=== PATIENT | female | born 1975 | race Two or more races ===

== ENCOUNTER 2017-04-18 07:17 | Emergency (ER) | payer SELFPAY ==
[~2017-04-18] VITALS: Ht 160 cm; Wt 65.8 kg
[~2017-04-18 07:17] MED LIST: ACETAMINOPHEN-1 EAC1 ORAL; ALBUTEROL2.5 MG/3 M INH; BACTRIM DS TAB1 EAC1 ORAL; IBUPROFEN600 MG ORAL; NORCO 5-325 TA1 EACH ORAL; SYNTHROID25 MCG ORAL; TENORMIN25 MG ORAL; UNOBMED
[2017-04-18 07:20] VITALS: BP 122/86
--- NOTE | 2017-04-18 08:28 | Emergency Room Report ---
History of Present Illness General Chief Complaint: Overdose Source: Patient, EMS Present Illness HPI Patient was received by paramedics at a methadone clinic \ Patient had been reported to be overdose Was unresponsive And paramedics report patient became responsive after she was given Narcan Patient here continues to be somewhat sluggish to respond She states that she wants to go home Denies any chest pain or shortness of breath denies any back or flank pain History of present illness at this time is somewhat limited as the patient is unable to provide history of how long she has been going to the methadone clinic or why she is on methadone Allergies: Coded Allergies: PENICILLINS (Verified Allergy, Unknown, 05/05/15) UNABLE TO ASSESS (Unverified , 04/18/17) Patient History Limited by: medical condition Past Medical History: see triage record Pertinent Family History: unable to obtain Last Menstrual Period: Unknown Reviewed Nursing Documentation: PMH: Agreed, PSxH: Agreed Nursing Documentation-PMH Hx Cardiac Problems: Yes Hx Hypertension: Yes Hx Cancer: Yes - thyroid cancer Hx Gastrointestinal Problems: No History Of Psychiatric Problem: Yes - Substance abuse Hx Neurological Problems: No Review of Systems All Other Systems: limited - Other than the ones mentioned in the history of present illness all others are reviewed however they do stay limited due to the patient's mental status Physical Exam Vital Signs Date Time Temp Pulse Resp B/P (MAP) Pulse Ox O2 Delivery O2 Flow Rate FiO2 04/18/17 07:10 98.8 98 16 121/79 98 Room Air Sp02 EP Interpretation: reviewed, normal General Appearance: no apparent distress - Patient appears mildly disheveled, otherwise in no acute respiratory distress Head: normocephalic, atraumatic Eyes: bilateral eye PERRL, bilateral eye EOMI ENT: hearing grossly normal, normal pharynx, TMs + canals normal, uvula midline Neck: full range of motion, supple, no meningismus, no bony tend Respiratory: lungs clear, normal breath sounds, no rhonchi, no respiratory distress, no retraction, no accessory muscle use Cardiovascular #1: normal peripheral pulses, regular rate, rhythm, no edema, no gallop, no JVD, no murmur Gastrointestinal: normal bowel sounds, non tender, soft, no mass, no organomegaly, non-distended, no guarding, no hernia, no pulsatile mass, no rebound Musculoskeletal: normal inspection Neurologic: responsive - Patient was initially slow to respond somewhat sluggish however throughout her stay has become more oriented and appropriate,, nursing admin III-XII nml as tested, motor strength/tone normal, sensory intact Psychiatric: mood/affect normal Skin: normal color, no rash, warm/dry, palpation normal Lymphatic: normal inspection, no adenopathy Medical Decision Making Diagnostic Impression: Primary Impression: Drug overdose ER Course Upon initial arrival patient is responsive to stimuli Maintaining appropriate respiratory efforts and saturation Patient was allowed to rest Multiple differentials including but not limited to suicide attempt, electrolyte pathology, aspiration, considered After further observation patient is awake alert Adamantly denies any suicidal thought, patient reports that she was given her usual methadone dose and is not sure why that the effect on her that it nevertheless patient maintaining appropriate airway At this time requested to go home in stable to do so Rhythm Strip Diag. Results EP Interpretation: yes Rate: 77 Rhythm: NSR, no PVC's, no ectopy Chest X-Ray Diagnostic Results Chest X-Ray Diagnostic Results : Chest X-Ray Ordered: Yes # of Views/Limited/Complete: 1 View Indication: Shortness of Breath EP Interpretation: Yes Interpretation: no consolidation, no effusion, no pneumothorax Impression: No acute disease Electronically Signed by: Josh Osborn DO Last Vital Signs Date Time Temp Pulse Resp B/P (MAP) Pulse Ox O2 Delivery O2 Flow Rate FiO2 04/18/17 07:20 98 16 Room Air 04/18/17 07:20 98.8 122/86 100 Status: improved Disposition: HOME, SELF-CARE Condition: Improved Referrals: NOT CHOSEN IPA/MD,REFERRING (PCP) Additional Instructions: Patient is provided with the discharge instructions notified to follow up with primary doctor in the next 2-3 days otherwise return to the er with any worsening symptoms. Please note that this report is being documented using [employer] technology. This can lead to erroneous entry secondary to incorrect interpretation by the dictating instrument. JOSH OSBORN D.O. Apr 18, 2017 08:28
[2017-04-18 08:57] VITALS: BP 128/88
--- NOTE | 2017-04-18 09:28 | Diagnostic Imaging Report ---
Indication: Chest pain Technique: XRAY Chest 1v Comparison: 05/05/2015 Findings: Patient mildly rotated. Heart size and mediastinal contours are within normal limits given technique. There is no focal consolidation, pneumothorax or pleural effusion. Osseous structures demonstrate no acute abnormality. Impression: No radiographic evidence of acute cardiopulmonary disease.
[2017-04-18 10:03] VITALS: BP 127/83
[2017-04-18 11:31] VITALS: BP 127/83
--- NOTE | 2017-04-19 19:17 | Cardiology Report ---
APPROVED REPORT EKG Measurement Heart [id number] Sinus tachycardia Otherwise normal ECG
== END 2017-04-18 11:31 | disposition home or self-care (01) ==
LOC: EDBD 07:17 → EMR 07:40
DX: T40.3X1A Poisoning by methadone, accidental (unintentional), initial encounter (principal); Y92.9 Unspecified place or not applicable; Z88.0 Allergy status to penicillin; I10 Essential (primary) hypertension; Z85.850 Personal history of malignant neoplasm of thyroid
CPT/HCPCS: 71010; 93005; 99283

== ENCOUNTER 2017-10-05 21:25 | Inpatient (IN) | payer SELFPAY ==
[~2017-10-05] VITALS: Ht 157.5 cm; Wt 62.6 kg
[2017-10-05 21:35] VITALS: BP 97/64
[2017-10-05 22:37] LABS: ANION GAP 9 mmol/L (5-15); BLOOD UREA NITROGEN 14 mg/dL (7-18); CARBON DIOXIDE 26 MMOL/L (21-32); CHLORIDE 102 MMOL/L (98-107); CREATININE 0.9 MG/DL (0.55-1.30); POTASSIUM 3.8 MMOL/L (3.5-5.1); SODIUM 137 MMOL/L (136-145)
[2017-10-05 22:52] VITALS: BP 110/64
[2017-10-05 22:52] LABS: ALANINE AMINOTRANSFERASE 16 U/L (12-78); ALBUMIN 3.4 G/DL (3.4-5.0); ALKALINE PHOSPHATASE 44 U/L (46-116); ASPARTATE AMINO TRANSFERASE 13 U/L (15-37); BILIRUBIN,TOTAL 0.1 MG/DL (0.2-1.0); CKMB 0.6 NG/ML (0.0-3.6); CREATINE KINASE 40 U/L (26-308)
[2017-10-05 22:58] LABS: BASOPHILS % (AUTO) 0.8 % (0.0-2.0); EOSINOPHILS % (AUTO) 2.4 % (0.0-3.0); HEMATOCRIT 36.2 % (37.0-47.0); HEMOGLOBIN 12.2 G/DL (12.0-16.0); LYMPHOCYTES % (AUTO) 40.1 % (20.0-45.0); MEAN CORPUSCULAR VOLUME 94 FL (80-99); MONOCYTES % (AUTO) 7.6 % (1.0-10.0); NEUTROPHILS % (AUTO) 49.1 % (45.0-75.0); PLATELET COUNT 361 K/UL (150-450); RED BLOOD COUNT 3.84 M/UL (4.20-5.40); RED CELL DISTRIBUTION WIDTH 12.9 % (11.6-14.8); WHITE BLOOD COUNT 10.5 K/UL (4.8-10.8)
[2017-10-05] MEDS ORDERED: Morphine Sulfate 4mg/ml Inj IVP ONE (23:30)
[2017-10-05] MEDS ORDERED: NORCO 10-325 T1 EACH ORAL (23:58)
[2017-10-05] MEDS ORDERED: ATIVAN2 MG ORAL (23:58)
[2017-10-06 00:16] VITALS: BP 111/65
[2017-10-06 01:00] VITALS: BP 129/77
--- NOTE | 2017-10-06 02:06 | Emergency Room Report ---
History of Present Illness General Chief Complaint: Chest Pain Source: Patient Present Illness HPI 42-year-old female presents ED for evaluation. Complaining of chest pain which started around 5 PM today. Sudden onset. Sharp, left-sided, 7 out of 10, nonradiating. States she took nitroglycerin prescribed to her which did not help. Denies shortness of breath. Also complaining of vaginal bleeding for the last 2 months. States she feels weak. Denies recent drug use. No other aggravating relieving factors. Denies any other associated symptoms Allergies: Coded Allergies: PENICILLINS (Verified Allergy, Unknown, 05/05/15) UNABLE TO ASSESS (Unverified , 04/18/17) Patient History Past Medical History: [place] Past Surgical History: none Pertinent Family History: none Social History: Reports: drug use; Denies: smoking, alcohol use Now: No Immunizations: UTD Reviewed Nursing Documentation: PMH: Agreed; PSxH: Agreed Nursing Documentation-PMH Hx Cardiac Problems: Yes - HEART ATTACK Hx Cancer: Yes - thyroid cancer Hx Gastrointestinal Problems: No Hx Neurological Problems: No Review of Systems All Other Systems: negative except mentioned in HPI Physical Exam Vital Signs Date Time Temp Pulse Resp B/P (MAP) Pulse Ox O2 Delivery O2 Flow Rate FiO2 10/05/17 21:35 98.6 83 14 97/64 99 Room Air 98.6 10/05/17 21:35 2.0 Sp02 EP Interpretation: reviewed, normal General Appearance: no apparent distress, alert, GCS 15, non-toxic Head: normocephalic, atraumatic Eyes: bilateral eye normal inspection, bilateral eye PERRL ENT: hearing grossly normal, normal pharynx, no angioedema, normal voice Neck: full range of motion, supple/symm/no masses Respiratory: chest non-tender, lungs clear, normal breath sounds, speaking full sentences Cardiovascular #1: regular rate, rhythm, no edema Cardiovascular #2: 2+ carotid (R), 2+ carotid (L), 2+ radial (R), 2+ radial (L) , 2+ dorsalis pedis (R), 2+ dorsalis pedis (L) Gastrointestinal: normal bowel sounds, non tender, soft, non-distended, no guarding, no rebound Rectal: deferred Genitourinary: normal inspection, no CVA tenderness Musculoskeletal: back normal, gait/station normal, normal range of motion, non- tender Neurologic: alert, oriented x3, responsive, motor strength/tone normal, sensory intact, speech normal Psychiatric: judgement/insight normal, memory normal, mood/affect normal, no suicidal/homicidal ideation Reflexes: 3+ bicep (R), 3+ bicep (L), 3+ tricep (R), 3+ tricep (L), 3+ knee (R) , 3+ knee (L) Skin: normal color, no rash, warm/dry, well hydrated Lymphatic: no adenopathy Medical Decision Making Diagnostic Impression: Primary Impression: Vaginal bleeding Additional Impression: ACS (acute coronary syndrome) ER Course Hospital Course 42-year-old female presents ED complaining of chest pain, vaginal bleeding. no relief with nitro Differential diagnoses include: KS/unstable angina, contusion, muscle strain, PTX, rib fracture Clinical course Patient placed on stretcher. on satellite project site monitor. After initial history and physical I ordered labs, EKG, chest x-ray, morphine labs reviewed- no leukocytosis, hb/hct stable, electrolytes ok, trop 0.005, Utox + THC, BZs, opiates EKG- NSR, no acute ischemic changes interpreted by me Chest x-ray- no acute process Patient has history of substance abuse. Initially denied any medications to me. Patient later admitted to taking [place], Valium prior to arrival. Patient states that the morphine did not help at all however patient was sleeping, resting comfortably patient declined aspirin Given patient's significant cardiac history patient will be admitted for serial troponins Case discussed with Dr. Taylor and he agreed to accept the patient to his service for further care and support I. I feel this is a highly complex case requiring extensive working including EKG/Rhythm strip, Xray/CT/US, Blood/urine lab work, repeat exams while in ED, and administration of strong opiates/narcotics for pain control, admission to hospital or close patient follow up. Diagnosis - ACS, vaginal bleeding admitted to telemetry in serious condition Labs Test 10/05/17 22:00 10/05/17 22:40 White Blood Count 10.5 K/UL (4.8-10.8) Red Blood Count 3.84 M/UL (4.20-5.40) Hemoglobin 12.2 G/DL (12.0-16.0) Hematocrit 36.2 % (37.0-47.0) Mean Corpuscular Volume 94 FL (80-99) Mean Corpuscular Hemoglobin 31.7 PG (27.0-31.0) Mean Corpuscular Hemoglobin Concent 33.6 G/DL (32.0-36.0) Red Cell Distribution Width 12.9 % (11.6-14.8) Platelet Count 361 K/UL (150-450) Mean Platelet Volume 6.6 FL (6.5-10.1) Neutrophils (%) (Auto) 49.1 % (45.0-75.0) Lymphocytes (%) (Auto) 40.1 % (20.0-45.0) Monocytes (%) (Auto) 7.6 % (1.0-10.0) Eosinophils (%) (Auto) 2.4 % (0.0-3.0) Basophils (%) (Auto) 0.8 % (0.0-2.0) Prothrombin Time 10.7 SEC (9.30-11.50) Prothromb Time International Ratio 1.0 (0.9-1.1) Activated Partial Thromboplast Time 27 SEC (23-33) Sodium Level 137 MMOL/L (136-145) Potassium Level 3.8 MMOL/L (3.5-5.1) Chloride Level 102 MMOL/L (98-107) Carbon Dioxide Level 26 MMOL/L (21-32) Anion Gap 9 mmol/L (5-15) Blood Urea Nitrogen 14 mg/dL (7-18) Creatinine 0.9 MG/DL (0.55-1.30) Estimat Glomerular Filtration Rate > 60 mL/min (>60) Glucose Level 98 MG/DL (74-106) Calcium Level 8.0 MG/DL (8.5-10.1) Total Bilirubin 0.1 MG/DL (0.2-1.0) Aspartate Amino Transf (AST/SGOT) 13 U/L (15-37) Alanine Aminotransferase (ALT/SGPT) 16 U/L (12-78) Alkaline Phosphatase 44 U/L (46-116) Total Creatine Kinase 40 U/L (26-308) Creatine Kinase MB 0.6 NG/ML (0.0-3.6) Creatine Kinase MB Relative Index 1.5 Troponin I 0.005 ng/mL (0.000-0.056) Pro-B-Type Natriuretic Peptide 333 pg/mL (0-125) Total Protein 6.8 G/DL (6.4-8.2) Albumin 3.4 G/DL (3.4-5.0) Globulin 3.4 g/dL Albumin/Globulin Ratio 1.0 (1.0-2.7) Urine HCG, Qualitative Negative (NEGATIVE) Urine Opiates Screen Positive (NEGATIVE) Urine Barbiturates Screen Negative (NEGATIVE) Phencyclidine (PCP) Screen Negative (NEGATIVE) Urine Amphetamines Screen Negative (NEGATIVE) Urine Benzodiazepines Screen Positive (NEGATIVE) Urine Cocaine Screen Negative (NEGATIVE) Urine Marijuana (THC) Screen Positive (NEGATIVE) EKG Diagnostic Results Rate: normal Rhythm: NSR ST Segments: no acute changes ASA given to the pt in ED: No - patient refused Rhythm Strip Diag. Results EP Interpretation: yes Rhythm: NSR, no PVC's, no ectopy Chest X-Ray Diagnostic Results Chest X-Ray Diagnostic Results : Chest X-Ray Ordered: Yes # of Views/Limited/Complete: 1 View Indication: Chest Pain EP Interpretation: Yes Interpretation: no consolidation, no effusion, no pneumothorax, no acute cardiopulmonary disease Impression: No acute disease Electronically Signed by: Electronically signed by David Alvarado MD Last Vital Signs Date Time Temp Pulse Resp B/P (MAP) Pulse Ox O2 Delivery O2 Flow Rate FiO2 10/06/17 01:09 98.6 77 19 111/65 99 Nasal Cannula 2.0 98.6 Status: improved Disposition: ADMITTED INPATIENT Condition: Serious Referrals: NON PHYSICIAN (PCP) David Alvarado MD Oct 06, 2017 02:05
[2017-10-06 04:00] VITALS: BP 112/63
[2017-10-06] MEDS ORDERED: Miralax 17gm pkt ORAL PRN (06:45)
[2017-10-06] MEDS ORDERED: Enalaprilat 2.5mg/2ml Inj IV PRN (06:45)
[2017-10-06] MEDS ORDERED: Nitroglycerin Subl 0.4mg tab SL PRN (06:45)
[2017-10-06] MEDS ORDERED: Albuterol/Ipratropium 3ml neb HHN PRN (06:45)
[2017-10-06] MEDS ORDERED: dilTIAZem HCl 25mg/5ml Inj IV PRN (06:45)
[2017-10-06] MEDS ORDERED: Levothyroxine 25mcg tab ORAL SCH (07:00)
[2017-10-06] MEDS: Ketorolac 30mg Inj IV PRN ×3 (08:36→16:08)
[2017-10-06 08:37] VITALS: BP 120/76
[2017-10-06] MEDS ORDERED: Atenolol 25mg tab ORAL SCH (09:00)
[2017-10-06] MEDS ORDERED: Aspirin Baby 81mg ORAL SCH (09:00)
[2017-10-06] MEDS ORDERED: Heparin 5000 units/ml inj SUBQ SCH (09:00)
--- NOTE | 2017-10-06 09:53 | Diagnostic Imaging Report ---
Indication: Chest pain Technique: One view of the chest Comparison: 04/18/2017 Findings: Inspiration is suboptimal. There is atelectasis at the left lung base. Lungs and pleural spaces are otherwise clear. Heart size is normal Impression: Left basilar atelectasis. No acute process otherwise
--- NOTE | 2017-10-06 10:29 | Consultation ---
History of Present Illness General Date patient seen: Oct 06, 2017 Time patient seen: 12:50 Chief Complaint: Chest Pain Present Illness HPI 42 year old female with CAD and previous MA, drug abuse, heavy menstrual bleeding comes in with chest pain and shortness of breath. Allergies: Coded Allergies: PENICILLINS (Verified Allergy, Unknown, 05/05/15) UNABLE TO ASSESS (Unverified , 04/18/17) Medication History Scheduled Atenolol (Tenormin), 25 MG ORAL DAILY, (Reported) Ibuprofen* (Motrin*), 600 MG ORAL FOUR TIMES A DAY, (Reported) Levothyroxine Sodium* (Synthroid*), 25 MCG ORAL DAILY, (Reported) Lorazepam* (Ativan*), 2 MG ORAL BEDTIME, (Reported) Trimethoprim/Sulfamethoxazole 160/800* (Bactrim Ds Tablet*), 1 TAB ORAL TWICE A DAY, (Reported) Scheduled PRN Acetaminophen With Codeine (T#3) (Tylenol #3 Tab*), 1 TAB ORAL Q6HR PRN for For Pain, (Reported) Albuterol Sulfate* (Albuterol Sulfate Hhn*), 3 ML INH Q4H PRN for Shortness of Breath, (Reported) Hydrocodone Bit/Acetaminophen 10-325* ([place] 10-325*), 1 TAB ORAL Q4H PRN for For Pain, (Reported) Miscellaneous Medications Unable to Obtain Medications (Unable To Obtain Meds), (Reported) Patient History Healthcare decision maker Resuscitation status Full Code Advanced Directive on File No Review of Systems Constitutional: Reports: no symptoms Eye: Reports: no symptoms Respiratory: Reports: no symptoms, shortness of breath Cardiovascular: Reports: chest pain Gastrointestinal: Reports: abdominal pain Musculoskeletal: Reports: no symptoms Skin: Reports: no symptoms Psychiatric: Reports: no symptoms Neurological: Reports: no symptoms Endocrine: Reports: no symptoms Hematologic/Lymphatic: Reports: no symptoms Physical Exam General Appearance: no apparent distress Lines, tubes and drains: peripheral HEENT: normocephalic Neck: non-tender Respiratory/Chest: chest wall non-tender Breasts: no masses Cardiovascular/Chest: normal rate Abdomen: normal bowel sounds Extremities: normal range of motion Skin Exam: normal pigmentation 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 Last 24 Hour Vital Signs Date Time Temp Pulse Resp B/P (MAP) Pulse Ox O2 Delivery O2 Flow Rate FiO2 10/06/17 08:37 83 120/76 10/06/17 08:00 94 10/06/17 04:00 97.7 85 18 112/63 94 Room Air 97.7 10/06/17 04:00 82 10/06/17 01:09 98.6 77 19 111/65 99 Nasal Cannula 2.0 98.6 10/06/17 01:00 97.3 84 18 129/77 97 Room Air 97.3 10/06/17 00:16 98.6 77 19 111/65 99 Nasal Cannula 2.0 98.6 10/05/17 23:38 98.6 10/05/17 22:52 98.6 89 14 110/64 100 Nasal Cannula 2.0 98.6 10/05/17 21:35 98.1 96 14 126/4 99 Room Air 98.1 10/05/17 21:35 85 16 Nasal Cannula 2.0 10/05/17 21:35 98.6 83 14 97/64 99 Room Air 98.6 Intake and Output 10/05/17 10/06/17 19:00 07:00 Intake Total 0 ml Balance 0 ml Intake Oral 0 ml # Voids 1 # Bowel Movements 1 Laboratory Tests Test 10/05/17 22:00 10/05/17 22:40 10/06/17 08:30 White Blood Count 10.5 K/UL (4.8-10.8) Red Blood Count 3.84 M/UL (4.20-5.40) L Hemoglobin 12.2 G/DL (12.0-16.0) Hematocrit 36.2 % (37.0-47.0) L Mean Corpuscular Volume 94 FL (80-99) Mean Corpuscular Hemoglobin 31.7 PG (27.0-31.0) H Mean Corpuscular Hemoglobin Concent 33.6 G/DL (32.0-36.0) Red Cell Distribution Width 12.9 % (11.6-14.8) Platelet Count 361 K/UL (150-450) Mean Platelet Volume 6.6 FL (6.5-10.1) Neutrophils (%) (Auto) 49.1 % (45.0-75.0) Lymphocytes (%) (Auto) 40.1 % (20.0-45.0) Monocytes (%) (Auto) 7.6 % (1.0-10.0) Eosinophils (%) (Auto) 2.4 % (0.0-3.0) Basophils (%) (Auto) 0.8 % (0.0-2.0) Prothrombin Time 10.7 SEC (9.30-11.50) Prothromb Time International Ratio 1.0 (0.9-1.1) Activated Partial Thromboplast Time 27 SEC (23-33) Sodium Level 137 MMOL/L (136-145) Potassium Level 3.8 MMOL/L (3.5-5.1) Chloride Level 102 MMOL/L (98-107) Carbon Dioxide Level 26 MMOL/L (21-32) Anion Gap 9 mmol/L (5-15) Blood Urea Nitrogen 14 mg/dL (7-18) Creatinine 0.9 MG/DL (0.55-1.30) Estimat Glomerular Filtration Rate > 60 mL/min (>60) Glucose Level 98 MG/DL (74-106) Calcium Level 8.0 MG/DL (8.5-10.1) L Total Bilirubin 0.1 MG/DL (0.2-1.0) L Aspartate Amino Transf (AST/SGOT) 13 U/L (15-37) L Alanine Aminotransferase (ALT/SGPT) 16 U/L (12-78) Alkaline Phosphatase 44 U/L (46-116) L Total Creatine Kinase 40 U/L (26-308) Creatine Kinase MB 0.6 NG/ML (0.0-3.6) Creatine Kinase MB Relative Index 1.5 Troponin I 0.005 ng/mL (0.000-0.056) 0.006 ng/mL (0.000-0.056) Pro-B-Type Natriuretic Peptide 333 pg/mL (0-125) H Total Protein 6.8 G/DL (6.4-8.2) Albumin 3.4 G/DL (3.4-5.0) Globulin 3.4 g/dL Albumin/Globulin Ratio 1.0 (1.0-2.7) Urine HCG, Qualitative Negative (NEGATIVE) Urine Opiates Screen Positive (NEGATIVE) H Urine Barbiturates Screen Negative (NEGATIVE) Phencyclidine (PCP) Screen Negative (NEGATIVE) Urine Amphetamines Screen Negative (NEGATIVE) Urine Benzodiazepines Screen Positive (NEGATIVE) H Urine Cocaine Screen Negative (NEGATIVE) Urine Marijuana (THC) Screen Positive (NEGATIVE) H Height (Feet): 5 Height (Inches): 2.00 Weight (Pounds): 138 Medications Current Medications Medications (Trade) Dose Ordered Sig/Colleen Route PRN Reason Start Time Stop Time Status Last Admin Dose Admin Acetaminophen (Tylenol) 650 mg Q4H PRN ORAL FEVER 10/06/17 06:45 11/05/17 06:44 Albuterol/ Ipratropium (Albuterol/ Ipratropium) 3 ml Q4H PRN HHN Shortness of Breath 10/06/17 06:45 10/11/17 06:44 Aspirin (ASA) 162 mg DAILY ORAL 10/06/17 09:00 11/05/17 08:59 10/06/17 08:35 Atenolol (Tenormin) 25 mg DAILY ORAL 10/06/17 09:00 11/05/17 08:59 10/06/17 08:37 Diltiazem HCl (Cardizem) 10 mg Q1H PRN IV heart rate more than 120, 10/06/17 06:45 11/05/17 06:44 Enalaprilat (Vasotec) 2.5 mg Q6H PRN IV sbp more than 160 10/06/17 06:45 11/05/17 06:44 Heparin Sodium (Porcine) (Heparin 5000 units/ml) 5,000 units EVERY 12 HOURS SUBQ 10/06/17 09:00 11/05/17 08:59 Ketorolac Tromethamine (Toradol 30mg) 30 mg Q6HR PRN IV moderate pain ( 4-6) 10/06/17 06:45 10/11/17 06:44 10/06/17 09:22 Levothyroxine Sodium (Synthroid) 25 mcg DAILY@0630 ORAL 10/06/17 07:00 11/05/17 06:59 10/06/17 08:15 Nitroglycerin (Ntg) 0.4 mg Q5M PRN SL Prn Chest Pain 10/06/17 06:45 11/05/17 06:44 Ondansetron HCl (Zofran) 4 mg Q6H PRN IVP Nausea & Vomiting 10/06/17 06:45 11/05/17 06:44 Polyethylene Glycol (Miralax) 17 gm DAILYPRN PRN ORAL Constipation 10/06/17 06:45 11/05/17 06:44 Temazepam (Restoril) 15 mg HSPRN PRN ORAL Insomnia 10/06/17 06:45 10/13/17 06:44 Assessment/Plan Assessment/Plan Chest pain Coronary disease Drug abuse Vaginal bleeding 1) Serial EKG/Troponin Negative x2 2) TTE reviewed, normal wall motion and function, moderate MR, will need to watch 3) Patient will need stress test prior to discharge due to hx of MA, ok to do tomorrow 4) Aspirin 5) Statin 6) Nitro prn 7) Gynecology consult to evaluate vaginal bleeding re: endometriosis? Irving Ying M.D. Oct 06, 2017 10:29
--- NOTE | 2017-10-06 11:08 | History & Physical ---
History and Physical History & Physicial Dictated for Int Med-Dr Ross no. [id number]. Rudi Fontenot MD Oct 06, 2017 11:08
--- NOTE | 2017-10-06 14:46 | Consultation ---
History of Present Illness General Date patient seen: Oct 06, 2017 Chief Complaint: Chest Pain Present Illness HPI 42-year-old female presented to ED for evaluation of chest pain. Sudden onset. Sharp, left-sided, 7 out of 10, nonradiating. States she took nitroglycerin prescribed to her which did not help. Denies shortness of breath. States she feels weak. Denies recent drug use. No other aggravating relieving factors. Denies any other associated symptoms. She is admitted to telemetry for further w /u. Allergies: Coded Allergies: PENICILLINS (Verified Allergy, Unknown, 05/05/15) UNABLE TO ASSESS (Unverified , 04/18/17) Medication History Scheduled Atenolol (Tenormin), 25 MG ORAL DAILY, (Reported) Ibuprofen* (Motrin*), 600 MG ORAL FOUR TIMES A DAY, (Reported) Levothyroxine Sodium* (Synthroid*), 25 MCG ORAL DAILY, (Reported) Lorazepam* (Ativan*), 2 MG ORAL BEDTIME, (Reported) Trimethoprim/Sulfamethoxazole 160/800* (Bactrim Ds Tablet*), 1 TAB ORAL TWICE A DAY, (Reported) Scheduled PRN Acetaminophen With Codeine (T#3) (Tylenol #3 Tab*), 1 TAB ORAL Q6HR PRN for For Pain, (Reported) Albuterol Sulfate* (Albuterol Sulfate Hhn*), 3 ML INH Q4H PRN for Shortness of Breath, (Reported) Hydrocodone Bit/Acetaminophen 10-325* ([place] 10-325*), 1 TAB ORAL Q4H PRN for For Pain, (Reported) Miscellaneous Medications Unable to Obtain Medications (Unable To Obtain Meds), (Reported) Patient History Healthcare decision maker Resuscitation status Full Code Advanced Directive on File No Past Medical/Surgical History Past Medical/Surgical History: (1) CAD (coronary artery disease) (2) Vaginal bleeding Review of Systems All Other Systems: negative except mentioned in HPI Physical Exam General Appearance: WD/WN Lines, tubes and drains: peripheral HEENT: normocephalic Neck: non-tender, normal alignment Respiratory/Chest: chest wall non-tender, lungs clear Breasts: no masses Cardiovascular/Chest: normal peripheral pulses Abdomen: normal bowel sounds, non tender Extremities: normal range of motion Skin Exam: normal pigmentation Last 24 Hour Vital Signs Date Time Temp Pulse Resp B/P (MAP) Pulse Ox O2 Delivery O2 Flow Rate FiO2 10/06/17 12:00 75 10/06/17 08:37 83 120/76 10/06/17 08:00 94 10/06/17 04:00 97.7 85 18 112/63 94 Room Air 97.7 10/06/17 04:00 82 10/06/17 01:09 98.6 77 19 111/65 99 Nasal Cannula 2.0 98.6 10/06/17 01:00 97.3 84 18 129/77 97 Room Air 97.3 10/06/17 00:16 98.6 77 19 111/65 99 Nasal Cannula 2.0 98.6 10/05/17 23:38 98.6 10/05/17 22:52 98.6 89 14 110/64 100 Nasal Cannula 2.0 98.6 10/05/17 21:35 98.1 96 14 126/4 99 Room Air 98.1 10/05/17 21:35 85 16 Nasal Cannula 2.0 10/05/17 21:35 98.6 83 14 97/64 99 Room Air 98.6 Intake and Output 10/05/17 10/06/17 19:00 07:00 Intake Total 0 ml Balance 0 ml Intake Oral 0 ml # Voids 1 # Bowel Movements 1 Laboratory Tests Test 10/05/17 22:00 10/05/17 22:40 10/06/17 08:30 White Blood Count 10.5 K/UL (4.8-10.8) Red Blood Count 3.84 M/UL (4.20-5.40) L Hemoglobin 12.2 G/DL (12.0-16.0) Hematocrit 36.2 % (37.0-47.0) L Mean Corpuscular Volume 94 FL (80-99) Mean Corpuscular Hemoglobin 31.7 PG (27.0-31.0) H Mean Corpuscular Hemoglobin Concent 33.6 G/DL (32.0-36.0) Red Cell Distribution Width 12.9 % (11.6-14.8) Platelet Count 361 K/UL (150-450) Mean Platelet Volume 6.6 FL (6.5-10.1) Neutrophils (%) (Auto) 49.1 % (45.0-75.0) Lymphocytes (%) (Auto) 40.1 % (20.0-45.0) Monocytes (%) (Auto) 7.6 % (1.0-10.0) Eosinophils (%) (Auto) 2.4 % (0.0-3.0) Basophils (%) (Auto) 0.8 % (0.0-2.0) Prothrombin Time 10.7 SEC (9.30-11.50) Prothromb Time International Ratio 1.0 (0.9-1.1) Activated Partial Thromboplast Time 27 SEC (23-33) Sodium Level 137 MMOL/L (136-145) Potassium Level 3.8 MMOL/L (3.5-5.1) Chloride Level 102 MMOL/L (98-107) Carbon Dioxide Level 26 MMOL/L (21-32) Anion Gap 9 mmol/L (5-15) Blood Urea Nitrogen 14 mg/dL (7-18) Creatinine 0.9 MG/DL (0.55-1.30) Estimat Glomerular Filtration Rate > 60 mL/min (>60) Glucose Level 98 MG/DL (74-106) Calcium Level 8.0 MG/DL (8.5-10.1) L Total Bilirubin 0.1 MG/DL (0.2-1.0) L Aspartate Amino Transf (AST/SGOT) 13 U/L (15-37) L Alanine Aminotransferase (ALT/SGPT) 16 U/L (12-78) Alkaline Phosphatase 44 U/L (46-116) L Total Creatine Kinase 40 U/L (26-308) Creatine Kinase MB 0.6 NG/ML (0.0-3.6) Creatine Kinase MB Relative Index 1.5 Troponin I 0.005 ng/mL (0.000-0.056) 0.006 ng/mL (0.000-0.056) Pro-B-Type Natriuretic Peptide 333 pg/mL (0-125) H Total Protein 6.8 G/DL (6.4-8.2) Albumin 3.4 G/DL (3.4-5.0) Globulin 3.4 g/dL Albumin/Globulin Ratio 1.0 (1.0-2.7) Urine HCG, Qualitative Negative (NEGATIVE) Urine Opiates Screen Positive (NEGATIVE) H Urine Barbiturates Screen Negative (NEGATIVE) Phencyclidine (PCP) Screen Negative (NEGATIVE) Urine Amphetamines Screen Negative (NEGATIVE) Urine Benzodiazepines Screen Positive (NEGATIVE) H Urine Cocaine Screen Negative (NEGATIVE) Urine Marijuana (THC) Screen Positive (NEGATIVE) H Height (Feet): 5 Height (Inches): 2.00 Weight (Pounds): 138 Medications Current Medications Medications (Trade) Dose Ordered Sig/Colleen Route PRN Reason Start Time Stop Time Status Last Admin Dose Admin Acetaminophen (Tylenol) 650 mg Q4H PRN ORAL FEVER 10/06/17 06:45 11/05/17 06:44 Albuterol/ Ipratropium (Albuterol/ Ipratropium) 3 ml Q4H PRN HHN Shortness of Breath 10/06/17 06:45 10/11/17 06:44 Aspirin (ASA) 162 mg DAILY ORAL 10/06/17 09:00 11/05/17 08:59 10/06/17 08:35 Atenolol (Tenormin) 25 mg DAILY ORAL 10/06/17 09:00 11/05/17 08:59 10/06/17 08:37 Diltiazem HCl (Cardizem) 10 mg Q1H PRN IV heart rate more than 120, 10/06/17 06:45 11/05/17 06:44 Enalaprilat (Vasotec) 2.5 mg Q6H PRN IV sbp more than 160 10/06/17 06:45 11/05/17 06:44 Heparin Sodium (Porcine) (Heparin 5000 units/ml) 5,000 units EVERY 12 HOURS SUBQ 10/06/17 09:00 11/05/17 08:59 Ketorolac Tromethamine (Toradol 30mg) 30 mg Q6HR PRN IV moderate pain ( 4-6) 10/06/17 06:45 10/11/17 06:44 10/06/17 09:22 Levothyroxine Sodium (Synthroid) 25 mcg DAILY@0630 ORAL 10/06/17 07:00 11/05/17 06:59 10/06/17 08:15 Nitroglycerin (Ntg) 0.4 mg Q5M PRN SL Prn Chest Pain 10/06/17 06:45 11/05/17 06:44 Ondansetron HCl (Zofran) 4 mg Q6H PRN IVP Nausea & Vomiting 10/06/17 06:45 11/05/17 06:44 Polyethylene Glycol (Miralax) 17 gm DAILYPRN PRN ORAL Constipation 10/06/17 06:45 11/05/17 06:44 Temazepam (Restoril) 15 mg HSPRN PRN ORAL Insomnia 10/06/17 06:45 10/13/17 06:44 Assessment/Plan Problem List: (1) ACS (acute coronary syndrome) ICD Codes: I24.9 - Acute ischemic heart disease, unspecified SNOMED: 923134528 (2) Chest pain ICD Codes: R07.9 - Chest pain, unspecified SNOMED: 66149532 (3) Acute costochondritis ICD Codes: M94.0 - Chondrocostal junction syndrome [Tietze] SNOMED: 1446988, 46264431 (4) GERD (gastroesophageal reflux disease) ICD Codes: K21.9 - Gastro-esophageal reflux disease without esophagitis SNOMED: 444144838 (5) Anxiety ICD Codes: F41.9 - Anxiety disorder, unspecified SNOMED: 84566198 Assessment/Plan symptomatic treatment stress test ordered by binding machine operator, [place] symptomatic treatment pt claims to have severe menstrual bleeding, but her h/h is negative. Neena Fabain MD Oct 06, 2017 14:46
--- NOTE | 2017-10-06 17:15 | History and Physical Report ---
DATE OF ADMISSION: 10/06/2017 CHIEF COMPLAINT: The patient is a 42-year-old female, who presents with chief complaint of chest pain and shortness of breath. HISTORY OF PRESENT ILLNESS: Began yesterday, 10/05/2017. The patient began to experience chest pain. Chest pain is substernal. There is no radiation to the jaw or to the shoulder. The patient states the chest pain is 7/10 in intensity. The patient took nitroglycerin, which did not relieve the pain. The patient presented to [facility]. The patient is admitted with chest pain to rule out acute coronary syndrome. PAST MEDICAL HISTORY: Significant for: 1. Coronary artery disease, status post previous myocardial infarction. 2. Hypertension. 3. Hypothyroidism. CURRENT MEDICATIONS: 1. Atenolol 25 mg one tab p.o. daily. 2. Ibuprofen 600 mg p.o. four times daily p.r.n. 3. Levoxyl 0.025 mg p.o. daily. 4. Ativan 2 mg p.o. at bedtime. 5. [place] 10/325 mg one tablet p.o. p.r.n. ALLERGIES: Penicillin. SOCIAL HISTORY: The patient is single and is disabled. The patient smokes 1 pack cigarettes per day. The patient denies alcohol or drug abuse. REVIEW OF SYSTEMS: CONSTITUTIONAL: The patient denies weight loss or weight gain. The patient denies fevers or chills. HEENT: The patient denies ear or throat pain. The patient denies headache. CARDIOVASCULAR: The patient complains of chest pain as above. The patient denies palpitations. CHEST: The patient complains of shortness of breath as above. The patient denies wheezes. ABDOMEN: The patient denies nausea, vomiting, diarrhea, or constipation. GENITOURINARY: The patient complains of menorrhagia for the past 2 months. The patient denies dysuria or increased frequency of urination. NEUROMUSCULAR: The patient denies seizures or generalized weakness. PHYSICAL EXAMINATION: VITAL SIGNS: Temperature 97.3, respirations 18, pulse 84, and blood pressure 129/77. GENERAL: The patient is a well-developed and well-nourished female, in no apparent distress. HEENT: Pupils equal and responsive to light and accommodation. Extraocular movements are intact. NECK: Supple. No lymphadenopathy. CHEST: Lungs are clear to auscultation bilaterally without wheezes or rales. CARDIOVASCULAR: Regular rhythm and rate. S1 and S2 are normal without murmurs, rubs, or gallops. ABDOMEN: Soft, nontender, and nondistended. Positive bowel sounds. No evidence of hepatosplenomegaly. Currently, no rebound or guarding noted. EXTREMITIES: Negative for clubbing, cyanosis, or edema. RECTAL/GENITAL: Refused. NEUROLOGIC: Cranial nerves II through XII are grossly intact without focal deficits. Motor strength is 5/5 bilaterally. Deep tendon reflexes are 2+ plantar. LABORATORY STUDIES: WBC 10.5, hemoglobin 12.2, hematocrit 36.2, and platelets 361,000. Sodium 137, potassium 3.8, chloride 102, CO2 26, BUN 14, creatinine 0.9, and glucose 98. AST elevated. Troponin 0.005. Chest x-ray showed left basilar atelectasis, otherwise within normal limits. ASSESSMENT: This is a 42-year-old female. 1. Chest pain. 2. Shortness of breath. 3. Coronary artery disease. 4. Hypertension. 5. Hypothyroidism. 6. Menorrhagia. TREATMENT: 1. Chest pain/coronary disease. A Cardiology consultation is pending with . An echocardiogram is pending. Serial troponin levels will be performed. We will follow recommendations of Cardiology. 2. Hypertension. Continue atenolol as above. 3. Hypothyroidism. Continue Levoxyl as above. 4. Menorrhagia. A Gynecology consultation is pending with Dr. Jolley. Rudi Fontenot M.D. DR: TRACEE JOB#: [id number] CC:
--- NOTE | 2017-10-07 10:24 | Discharge Summary ---
Discharge Summary Discharge Summary _ DATE OF ADMISSION: 10/06/2017 DATE OF DISCHARGE: 10/06/2017. Patient signed AGAINST MEDICAL ADVICE d REASON FOR ADMISSION: 42 years old female with past medical history significant for hypertension, heart attack, hypothyroidism, presented to emergency room for evaluation. She reported chest pain with sudden onset, sharp, left-sided, 7 out of 10 on a scale 1-10, nonradiating. Patient reported that she took nitroglycerin, which was prescribed to her, at home, without any relief. She also reported vaginal bleeding for the last 2 months. Patient reported feeling weak. No recent drug use. Vital signs were stable. Pulse oximetry was stable on room air. No leukocytosis. Hemoglobin 12.2, hematocrit 36.2. Troponin negative. Pro BNP 333. Urine test negative, urine toxicology screen positive for opiates, , benzodiazepine, and marijuana. EKG revealed normal sinus rhythm, no acute ischemic changes. Patient refused aspirin in the emergency department. Chest x-ray revealed no acute cardiopulmonary pathology. Patient admitted with diagnosis of chest pain, rule out acute coronary syndrome , vaginal bleeding, substance-abuse CONSULTANTS: vending machine technician Dr. Ying pulmonary Dr. Fabian [facility] COURSE: Patient admitted to telemetry floor. Cardiology and pulmonology consults were requested. Serial troponin 2 were negative. Telemetry showed no acute ischemic changes. Patient was ruled out for acute GA. Echocardiogram revealed preserved ejection fraction of 60%. Mild left ventricular hypertrophy. Moderate mitral regurgitation. Right ventricular systolic pressure of 21. Blood pressure was managed with beta oj. Antiplatelet therapy added to existing regimen. Per vending machine technician patient need a stress test prior to discharge due to history of myocardial infarction. Patient will need to be watched careful for moderate mitral regurgitation, present on on echocardiogram. Pain management was addressed with nitroglycerin. Supplemental oxygen and pulmonary toilet were on board as needed. Pulse oximetry stable on room air. Blood pressure stable. Hemoglobin and hematocrit remained stable. DESIGN SUPERVISOR consult was requested. DVT prophylaxis provided. Levothyroxine was continued. wheel worker attempted to meet with the patient regarding substance abuse/ dependency issue. Patient was not in the mood to answer questions at that time. Patient was counseled on abstinence from street drug and overuse of prescribed medications. Patient decided to sign AGAINST MEDICAL ADVICE. The risks and consequences of signing AGAINST MEDICAL ADVICE were discussed with the patient. Patient verbalized understanding, signed the form and left. FINAL DIAGNOSES: Chest pain Coronary artery disease with history of GA Substance abuse Vaginal bleeding/menorrhagia Hypertension Hypothyroidism Possible anxiety Possible acute costochondritis I have been assigned to dictate discharge summary for this account. I was not involved in the patient's management. Susi Mora NP Oct 07, 2017 10:24
--- NOTE | 2017-10-07 14:57 | Cardiology Report ---
APPROVED REPORT EXAM: Two-dimensional and M-mode echocardiogram with Doppler and color Doppler. INDICATION LV function M-Mode DIMENSIONS IVSd1.7 (0.7-1.1cm)Left Atrium (MM)3.3 (1.6-4.0cm) LVDd4.5 (3.5-5.6cm)Aortic Root3.2 (2.0-3.7cm) PWd1.5 (0.7-1.1cm)Aortic Cusp Exc.1.8 (1.5-2.0cm) IVSs1.7 cm LVDs3.2 (2.5-4.0cm) PWs1.6 cm Normal left ventricular chamber size, systolic function and wall motion. Left ventricular ejection fraction estimated to be 55-60 %. No evidence of left ventricular hypertrophy. No evidence of pericardial effusion. All other cardiac chamber sizes are within normal limits. Mild focal aortic valve sclerosis with adequate cusp excursion. Mildly thickened mitral valve leaflets with normal excursion. Mild mitral annulus and aortic root calcification. Normal pulmonic valve structure. Normal tricuspid valve structure. IVC measured at 2.1 cm with slight physiologic collapse suggestive of increased RA pressure. A color flow and spectral Doppler study was performed and revealed: Trace aortic insufficiency. Mild mitral regurgitation. Mitral diastolic velocities suggest reduced left ventricular relaxation c/w mild LV diastolic dysfunction (Grade I ). Trace to mild tricuspid regurgitation. Tricuspid systolic velocities suggests peak right ventricular systolic pressure of 36 mmHg, consistent with borderline mild pulmonary hypertension. Trace pulmonic regurgitation present.
--- NOTE | 2017-10-07 15:04 | Cardiology Report ---
APPROVED REPORT EKG Measurement Heart [id number] Normal sinus rhythm Prolonged QT Abnormal ECG
== END 2017-10-06 16:37 | disposition left against medical advice (07) | DRG 206 ==
LOC: EMR 22:00 → EDBEDREQ 23:35 → 2E 23:53 → EDBEDREQ 10-06 00:11 → OBSVTOIN 10-06 10:04
DX: M94.0 Chondrocostal junction syndrome [Tietze] (principal); I25.10 Atherosclerotic heart disease of native coronary artery without angina pectoris; R07.9 Chest pain, unspecified; I25.2 Old myocardial infarction; E03.9 Hypothyroidism, unspecified; Z88.0 Allergy status to penicillin; R06.02 Shortness of breath; N92.0 Excessive and frequent menstruation with regular cycle; F19.10 Other psychoactive substance abuse, uncomplicated; I10 Essential (primary) hypertension; F41.9 Anxiety disorder, unspecified
CPT/HCPCS: 36415; 71045; 80053; 80307; 81025; 82550; 82553; 83880; 84484; 85025; 85610; 85730; 86850; 86900; 86901; 93005; 93306; 99285

== ENCOUNTER 2017-10-29 01:32 | Emergency (ER) | payer SELFPAY ==
[~2017-10-29] VITALS: Ht 157.5 cm; Wt 63.5 kg
[~2017-10-29 01:32] MED LIST changes: +ATIVAN2 MG ORAL; +NORCO 10-325 T1 EACH ORAL
[2017-10-29 02:32] LABS: BASOPHILS % (AUTO) 0.8 % (0.0-2.0); EOSINOPHILS % (AUTO) 0.4 % (0.0-3.0); HEMATOCRIT 41.9 % (37.0-47.0); HEMOGLOBIN 13.8 G/DL (12.0-16.0); LYMPHOCYTES % (AUTO) 19.5 % (20.0-45.0); MEAN CORPUSCULAR VOLUME 94 FL (80-99); MONOCYTES % (AUTO) 5.2 % (1.0-10.0); NEUTROPHILS % (AUTO) 74.1 % (45.0-75.0); PLATELET COUNT 423 K/UL (150-450); RED BLOOD COUNT 4.45 M/UL (4.20-5.40); RED CELL DISTRIBUTION WIDTH 12.4 % (11.6-14.8); WHITE BLOOD COUNT 12.6 K/UL (4.8-10.8)
--- NOTE | 2017-10-29 02:32 | Emergency Room Report ---
History of Present Illness General Chief Complaint: Chest Pain Source: Patient Present Illness HPI Is a 42-year-old female who said that she has a history of NE in the past. She also says she has a history of CHF. She presents with chief complaint of shortness of breath and chest pressure. Onset for the last 2 days now. Hurst like CHF per patient. She said she was just admitted to [facility] 2 weeks ago and was admitted for CHF. She said she was discharged without medication. No Lasix. She was here 3 weeks ago admitted for chest pain rule out. She signed out AMA after negative serum troponin. Patient claimed that she gain 20- 30 pounds in the last couple months. She said that it is all water gain. Worse with exertion. Better with rest. Denies any diaphoresis or exertional component. Allergies: Coded Allergies: PENICILLINS (Verified Allergy, Unknown, 10/29/17) UNABLE TO ASSESS (Unverified , 04/18/17) Patient History Past Medical History: see triage record, old chart reviewed Past Surgical History: other Pertinent Family History: none Social History: Denies: smoking Last Menstrual Period: 09/2017 Now: No Immunizations: other Reviewed Nursing Documentation: PMH: Agreed; PSxH: Agreed Nursing Documentation-PMH Past Medical History: No History, Except For Hx Cardiac Problems: Yes - HEART ATTACK, CHF Hx Cancer: Yes - thyroid cancer Hx Gastrointestinal Problems: No Hx Neurological Problems: No Review of Systems Eye: Denies: eye pain, blurred vision ENT: Denies: ear pain, nose congestion, throat swelling Respiratory: Reports: shortness of breath; Denies: cough Cardiovascular: Reports: chest pain; Denies: palpitations Gastrointestinal: Denies: abdominal pain, diarrhea, nausea, vomiting Musculoskeletal: Denies: back pain, joint pain Skin: Denies: rash Neurological: Denies: headache, numbness Endocrine: Denies: increased thirst, increased urine Hematologic/Lymphatic: Denies: easy bruising All Other Systems: negative except mentioned in HPI Physical Exam Vital Signs Date Time Temp Pulse Resp B/P (MAP) Pulse Ox O2 Delivery O2 Flow Rate FiO2 10/29/17 01:33 98.3 89 16 124/77 96 Room Air 98.2 vitals normal Sp02 EP Interpretation: reviewed, normal General Appearance: well appearing, no apparent distress, alert Head: normocephalic, atraumatic Eyes: bilateral eye PERRL, bilateral eye EOMI ENT: hearing grossly normal, normal pharynx Neck: full range of motion, supple, no meningismus Respiratory: chest non-tender, lungs clear, normal breath sounds Cardiovascular #1: regular rate, rhythm, no murmur Gastrointestinal: normal bowel sounds, non tender, no mass, no organomegaly, no bruit, non-distended Musculoskeletal: back normal, gait/station normal, normal range of motion Psychiatric: mood/affect normal Skin: warm/dry Medical Decision Making Diagnostic Impression: Primary Impression: Chest pain Qualified Codes: R07.9 - Chest pain, unspecified Additional Impression: Opiate dependence Qualified Codes: F11.20 - Opioid dependence, uncomplicated ER Course Patient presents with chest pain and shortness of breath. EKG is normal. There is no evidence of any CHF. Her story of being admitted to [facility] with diagnosis of CHF and weight gain with fluid overloaded is incongruent one of the level data. She had an echocardiogram 3 weeks ago and there was no evidence of abnormal ejection fraction. Pretty normal echo. Chest x-ray is normal here. BNP is normal. Troponin negative. She keep asking for narcotics. I am uncomfortable prescribing narcotics for her in light of the fact that she is in a methadone clinic and she presents with opiate overdose in March. We'll discharge home. Lab Results Impression labs normal EKG Diagnostic Results Rate: normal Rhythm: NSR ST Segments: no acute changes Rhythm Strip Diag. Results Rhythm Strip Time: 02:31 EP Interpretation: yes Rate: 79 Rhythm: NSR, no PVC's, no ectopy Chest X-Ray Diagnostic Results Chest X-Ray Diagnostic Results : Chest X-Ray Ordered: Yes # of Views/Limited/Complete: 1 View Indication: Chest Pain EP Interpretation: Yes Interpretation: no consolidation, no effusion, no pneumothorax, no acute cardiopulmonary disease Impression: No acute disease Electronically Signed by: Gabe Velazquez MD Last Vital Signs Date Time Temp Pulse Resp B/P (MAP) Pulse Ox O2 Delivery O2 Flow Rate FiO2 10/29/17 01:35 89 16 Room Air 10/29/17 01:33 98.3 124/77 96 98.2 Status: improved Disposition: HOME, SELF-CARE Condition: Stable Patient Instructions: Nonspecific Chest Pain Additional Instructions: You did not have congestive heart failure. Follow-up your doctor in 7 days. Follow-up in the methadone clinic. Return if symptom worsen. Did not go to different ERs for pain complaint. GABE VELAZQUEZ M.D. Oct 29, 2017 02:32
[2017-10-29 02:35] LABS: ANION GAP 12 mmol/L (5-15); BLOOD UREA NITROGEN 9 mg/dL (7-18); CALCIUM 8.8 MG/DL (8.5-10.1); CARBON DIOXIDE 23 MMOL/L (21-32); CHLORIDE 102 MMOL/L (98-107); CREATININE 0.8 MG/DL (0.55-1.30); SODIUM 137 MMOL/L (136-145)
[2017-10-29 03:03] VITALS: BP 136/81
[2017-10-29 03:12] VITALS: BP 136/81
[2017-10-29] MEDS ORDERED: Acetaminophen 500mg (ES) tab ORAL ONE (03:15)
--- NOTE | 2017-10-29 11:05 | Diagnostic Imaging Report ---
Indication: Dyspnea Comparison: 10/05/2017 A single view chest radiograph was obtained. Findings: Cardiomediastinal appearance is within normal limits for age. Pulmonary vascularity is appropriate. The diaphragmatic contour is smooth and costophrenic angles are sharp. No pleural effusions are identified. The bones are unremarkable. Impression: No acute findings
--- NOTE | 2017-10-29 14:16 | Cardiology Report ---
APPROVED REPORT EKG Measurement Heart [id number] Normal sinus rhythm Normal ECG
== END 2017-10-29 03:22 | disposition home or self-care (01) ==
LOC: EMR 01:49
DX: R07.89 Other chest pain (principal); F11.20 Opioid dependence, uncomplicated; I25.2 Old myocardial infarction; I50.9 Heart failure, unspecified; Z85.850 Personal history of malignant neoplasm of thyroid; Z88.0 Allergy status to penicillin
CPT/HCPCS: 36415; 71045; 80048; 83880; 84484; 85025; 93005; 96374; 99283; J2405

== ENCOUNTER 2019-11-16 23:45 | Inpatient (IN) | payer OTHER ==
[~2019-11-16] VITALS: Ht 167.6 cm; Wt 61.2 kg
[2019-11-16 23:50] VITALS: BP 120/86
[2019-11-17] VITALS (24 sets, daily range): BP systolic 95–149; BP diastolic 56–85
--- NOTE | 2019-11-17 00:05 | NUR ---
ED Nurse Note: Pt brought into ED by CECIL RA 66 for overdose. Pt was found unconscious with snoring respirations by CECIL in a trailer on the couch. Pt was given 1 of narcan IV by CECIL and pt became aaox2. Pt presents in the ED awake and alert, breathing is normal and unlabored. Pt is able to answer questions, but is drowsy. Pt states she took oxycodone. She notes she has hx of cancer and that the norco she was prescribed has not been working, so someone at the trailer gave her an unk amount of oxycodone. Pt states she does not want to hurt herself or others. Pt connected to nuclear monitoring technician. Vital signs are stable at this time. Will continue to closely monitor.
--- NOTE | 2019-11-17 00:16 | Emergency Room Report ---
History of Present Illness General Chief Complaint: Overdose Source: EMS Present Illness HPI Disclaimer: Please note that this report is being documented using DRAGON technology. This can lead to erroneous entry secondary to incorrect interpretation by the dictating instrument. HPI: 44-year-old female with a history of hypothyroidism presents for possible opiate overdose. EMS was called to the house for increasing somnolence and concern over overdose by family or friends, this is unclear. EMS says that she was somnolent but no respiratory depression. She was treated with Narcan and improved her mentation. Patient arrives awake and alert. She states that she took a friend's oxycodone for persistent headache that is been going on over the past few days. She states this is because she ran out of her Synthroid medications and is unable to fill it due to COVID-19. She states the withdrawal from Synthroid gives her headaches and she took an oxycodone today. Does not know the dosage. Denies attempt at self-harm or suicidal attempt. Denies other alcohol or coingestants. PMH: Thyroid cancer with resultant hypothyroidism PSH: Thyroidectomy Allergies: Penicillin Social Hx: Denies drug or alcohol abuse Allergies: Coded Allergies: PENICILLINS (Verified Allergy, Unknown, 10/29/17) UNABLE TO ASSESS (Unverified , 04/18/17) Uncoded Allergies: PENICILLIN (Allergy, Unknown, 11/16/19) COVID-19 Screening Contact w/high risk pt: No Experienced COVID-19 symptoms?: No COVID-19 Testing performed INSTALLER: No Patient History Now: No Nursing Documentation-PMH Hx Cardiac Problems: Yes - HEART ATTACK, CHF Hx Cancer: Yes - thyroid Hx Gastrointestinal Problems: No History Of Psychiatric Problem: Yes - substance abuse Hx Neurological Problems: No Review of Systems All Other Systems: negative except mentioned in HPI Physical Exam Vital Signs Date Time Temp Pulse Resp B/P (MAP) Pulse Ox O2 Delivery O2 Flow Rate FiO2 11/16/19 23:42 97.2 105 20 111/75 (87) 97 Room Air General: Awake and alert, no acute distress HEENT: NC/AT. EOMI. Cardiovascular: RRR. S1 and S2 normal. No murmur appreciated Resp: Normal work of breathing. No cough, wheezing or crackles appreciated. No respiratory depression. Abdomen: Abdomen is soft, nondistended. Nontender Skin: Intact. No abrasions, laceration or rash over the exposed skin MSK: Normal tone and bulk. Moving all extremities. No obvious deformity. Neuro: Awake and alert. GCS 15. Mentating appropriately. Denies SI/HI. Procedures Critical Care Time Critical Care Time Total critical care time: Approximately 45 minutes Due to a high probability of clinically significant, life threatening deterioration, the patient required the highest level of preparedness to intervene emergently and I personally spent this critical care time directly and personally managing the patient. This critical care time included obtaining a history, examining the patient, pulse oximetry, ordering and reviewing studies , ordering treatments, evaluating response to treatment and updating management plan as needed, frequent reassessment and discussion with other providers as well as arranging for ultimate disposition. This critical to care time was performed to assess and manage the high probability of life-threatening deterioration that could result in multiorgan failure. This critical care time is separate from the separately billable procedures and treating other patients. Medical Decision Making Diagnostic Impression: Primary Impression: Elevated troponin Additional Impressions: Hyperkalemia Prolonged Q-T interval on ECG ER Course This a 44-year-old female brought in by EMS for possible opiate overdose. She was given Narcan prior to arrival arrives with stable vital signs, awake, alert , GCS 15 and no respiratory distress. The patient states she took oxycodone that was not prescribed to her for treatment of a headache but that this was not intentional overdose and denies SI/HI currently. 0100: Patient is now complaining of chest pain. She now states she has a prior history of CAD and CHF which was not communicated to me on my initial evaluation. States she has been having intermittent left-sided chest pain for the past few days that she is also been vomiting and feeling weak. Denies fever , cough, nasal congestion or sore throat. EKG showed a prolonged QTc interval but no acute ST segment changes. Potassium returned elevated as did troponin. Patient was given aspirin, nitroglycerin, lovenox. Chest x-ray does not show obvious infiltrate and rapid COVID-19 swab has returned negative. She will be admitted to panel physician, Dr. Sanchez, in the SDU for further treatment. Laboratory Tests Test 11/17/19 00:20 11/17/19 00:30 White Blood Count 14.8 K/UL (4.8-10.8) H Red Blood Count 3.98 M/UL (4.20-5.40) L Hemoglobin 11.7 G/DL (12.0-16.0) L Hematocrit 36.7 % (37.0-47.0) L Mean Corpuscular Volume 92 FL (80-99) Mean Corpuscular Hemoglobin 29.5 PG (27.0-31.0) Mean Corpuscular Hemoglobin Concent 32.0 G/DL (32.0-36.0) Red Cell Distribution Width 17.4 % (11.6-14.8) H Platelet Count 431 K/UL (150-450) Mean Platelet Volume 5.7 FL (6.5-10.1) L Neutrophils (%) (Auto) 69.9 % (45.0-75.0) Lymphocytes (%) (Auto) 22.8 % (20.0-45.0) Monocytes (%) (Auto) 5.9 % (1.0-10.0) Eosinophils (%) (Auto) 0.7 % (0.0-3.0) Basophils (%) (Auto) 0.7 % (0.0-2.0) Sodium Level 133 MMOL/L (136-145) L Potassium Level 5.4 MMOL/L (3.5-5.1) H Chloride Level 99 MMOL/L (98-107) Carbon Dioxide Level 24 MMOL/L (21-32) Anion Gap 10 mmol/L (5-15) Blood Urea Nitrogen 12 mg/dL (7-18) Creatinine 1.0 MG/DL (0.55-1.30) Estimated Glomerular Filtration Rate 59.7 mL/min (>60) Glucose Level 150 MG/DL (74-106) H Calcium Level 7.9 MG/DL (8.5-10.1) L Total Bilirubin 0.3 MG/DL (0.2-1.0) Aspartate Amino Transferase (AST) 52 U/L (15-37) H Alanine Aminotransferase (ALT) 28 U/L (12-78) Alkaline Phosphatase 45 U/L (46-116) L Troponin I 0.207 ng/mL (0.000-0.056) Pro-B-Type Natriuretic Peptide 155 pg/mL (0-125) H Total Protein 6.9 G/DL (6.4-8.2) Albumin 3.1 G/DL (3.4-5.0) L Globulin 3.8 g/dL Albumin/Globulin Ratio 0.8 (1.0-2.7) L Thyroid Stimulating Hormone (TSH) 17.321 uiU/mL (0.358-3.740) Salicylates Level 1.8 ug/mL (2.8-20) L Acetaminophen Level 8 MCG/ML (10-30) L Serum Alcohol < 3 mg/dL Phosphorus Level 4.9 MG/DL (2.5-4.9) Magnesium Level 1.9 MG/DL (1.8-2.4) Microbiology Date/Time Source Procedure Growth Status 11/17/19 01:06 Nasopharynx SARS-CoV-2 RdRp Gene Assay - Final Complete EKG Diagnostic Results EKG Time: 00:30 Rate: normal Rhythm: NSR Other Impression Sinus rhythm, normal axis, prolonged QTC at 513 ms, flattened T waves. No ST segment changes. Rhythm Strip Diag. Results Rhythm Strip Time: 00:30 EP Interpretation: yes Rate: 70s Rhythm: NSR, no PVC's, no ectopy Chest X-Ray Diagnostic Results Chest X-Ray Diagnostic Results : Chest X-Ray Ordered: Yes # of Views/Limited/Complete: 1 View Indication: Chest Pain Interpretation: no consolidation, no effusion, no pneumothorax, no acute cardiopulmonary disease Impression: No acute disease Electronically Signed by: Electronically signed by Dr. Natanael Luo Last Vital Signs Date Time Temp Pulse Resp B/P (MAP) Pulse Ox O2 Delivery O2 Flow Rate FiO2 11/16/19 23:50 97.2 86 20 120/86 100 Room Air Disposition: ADMITTED INPATIENT Condition: Serious Natanael Luo MD Nov 17, 2019 00:16
--- NOTE | 2019-11-17 00:30 | NUR ---
ED Nurse Note: Pt is c/o sharp chest pain at this time. ERMD made aware. Will perform EKG.
[2019-11-17 00:36] LABS: BASOPHILS % (AUTO) 0.7 % (0.0-2.0); EOSINOPHILS % (AUTO) 0.7 % (0.0-3.0); HEMATOCRIT 36.7 % (37.0-47.0); HEMOGLOBIN 11.7 G/DL (12.0-16.0); LYMPHOCYTES % (AUTO) 22.8 % (20.0-45.0); MEAN CORPUSCULAR VOLUME 92 FL (80-99); MONOCYTES % (AUTO) 5.9 % (1.0-10.0); NEUTROPHILS % (AUTO) 69.9 % (45.0-75.0); PLATELET COUNT 431 K/UL (150-450); RED BLOOD COUNT 3.98 M/UL (4.20-5.40); RED CELL DISTRIBUTION WIDTH 17.4 % (11.6-14.8); WHITE BLOOD COUNT 14.8 K/UL (4.8-10.8)
[2019-11-17 00:39] LABS: ANION GAP 10 mmol/L (5-15); BLOOD UREA NITROGEN 12 mg/dL (7-18); CALCIUM 7.9 MG/DL (8.5-10.1); CARBON DIOXIDE 24 MMOL/L (21-32); CHLORIDE 99 MMOL/L (98-107); POTASSIUM 5.4 MMOL/L (3.5-5.1); SODIUM 133 MMOL/L (136-145)
[2019-11-17 00:52] LABS: ALANINE AMINOTRANSFERASE 28 U/L (12-78); ALBUMIN 3.1 G/DL (3.4-5.0); ALBUMIN/GLOBULIN RATIO 0.8 (1.0-2.7); ALKALINE PHOSPHATASE 45 U/L (46-116); ASPARTATE AMINO TRANSFERASE 52 U/L (15-37); BILIRUBIN,TOTAL 0.3 MG/DL (0.2-1.0)
[2019-11-17] MEDS ORDERED: SYNTHROID100 MCG ORAL (00:53)
[2019-11-17] MEDS ORDERED: NORCO 10-325 T1 EACH ORAL (00:53)
[2019-11-17] MEDS ORDERED: XANAX2 MG ORAL (00:53)
[2019-11-17] MEDS ORDERED: Calcium Gluconate 1gm/10ml vial IVP ONE (01:00)
[2019-11-17] MEDS ORDERED: Insulin Human Regular 100units/ml 3ml IV ONE (01:00)
[2019-11-17 01:02] LABS: PHOSPHORUS 4.9 MG/DL (2.5-4.9)
[2019-11-17] MEDS ORDERED: Ketorolac 30mg Inj IV ONE (01:15)
[2019-11-17] MEDS ORDERED: Nitroglycerin Subl 0.4mg tab SL PRN (01:15)
--- NOTE | 2019-11-17 01:20 | NUR ---
ED Nurse Note: Pt desat to 89/90% on RA. ERMD made aware. Pt placed on 2L oxygen via NC. Will continue to monitor.
--- NOTE | 2019-11-17 01:30 | NUR ---
ED Nurse Note: Pt responded to 2L oxygen via NC. Oxygen saturation is 100% at this time.
--- NOTE | 2019-11-17 01:50 | NUR ---
ED Nurse Note: Pt still c/o 6/10 pain when awake. ERMD made aware. No new orders at this time. Pt also requesting a sandwhich. ERMD ordered no food intake at this time. Will continue to monitor.
[2019-11-17] MEDS ORDERED: Enoxaparin 80mg Inj SUBQ SCH ×2 (02:15→09:00)
--- NOTE | 2019-11-17 02:30 | NUR ---
ED Nurse Note: Pt is resting in bed with safety measures in place. No sign of distress or severe pain at this time. Pt remains on 2L oxygen via NC with 99% saturation. Pt changed into gown and belongings list completed. Will continue to monitor.
--- NOTE | 2019-11-17 03:00 | NUR ---
ED Nurse Note: ERMD ok with pt being sent to floor without obtaining urine sample. Pt cannot provide sample at this time.
--- NOTE | 2019-11-17 03:15 | NUR ---
ED Nurse Note: Report given to TRISHA Helton.
--- NOTE | 2019-11-17 03:30 | NUR ---
ED Nurse Note: Pt is stable for transfer to SDU unit at this time per ERMD. Pt is aaox4, breathing is normal and unlabored, NAD noted. Pt taken to unit via gurney, connected to monitor car operator by RNs. Pt belongings sent with pt. Pt IVs are patent and intact. Pt ambulated to SDU bed without complication on floor. Vital signs are stable and pt remains on 2L oxygen via NC. Pt care transferred to receiving RN.
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
--- NOTE | 2019-11-17 04:10 | NUR ---
NURSE NOTES: PATIENT ASLEEP STATUS, RESPIRATION REGULAR, O2 SATURATION 100%, HR 75/MIN SR NOTED, CALLED DR. Vanesa STANLEY REGARDING ADMISSION ORDER THAT LEFT MESSAGE.
--- NOTE | 2019-11-17 04:17 | NUR ---
NURSE NOTES: LE: CALLED BACK FROM DR. Vanesa STANLEY THAT RECEIVED ADMISSION ORDER AND READ BACK, WILL FOLLOW UP.
--- NOTE | 2019-11-17 04:45 | NUR ---
NURSE NOTES: PHONE CALL FROM PT'S WHO IS AGUSTIN KNIGHT REGARDING PT'S SITUATION THAT INFORMED PT WAS SLEEPING STATUS, NO PAIN OR SOB AT THAT TIME, WILL LET THE PATIENT KNOW HIS PHONE CALL.
[2019-11-17] MEDS: Morphine Sulfate 4mg/ml Inj (IV USE ONLY) IVP PRN ×7 (06:34→23:07)
--- NOTE | 2019-11-17 06:52 | NUR ---
NURSE NOTES: PATIENT COMPLAINED CP OF 8/10 THAT GIVEN MORPHINE 4MG BY IVP SLOWLY PRN ORDER AT 0634AM. PATIENT ASLEEP STATUS AT THIS TIME.
[2019-11-17 06:58] LABS: APPEARANCE,URINE CLEAR; BILIRUBIN, URINE NEGATIVE (NEGATIVE); GLUCOSE, URINE (UA) 2+ (NEGATIVE); KETONES,URINE 1+ (NEGATIVE); LEUKOCYTE ESTERASE ,URINE 1+ (NEGATIVE); NITRITE,URINE NEGATIVE (NEGATIVE); PH,URINE 6.5 (4.5-8.0); PROTEIN,URINE 2+ (NEGATIVE); UROBILINOGEN,URINE NORMAL MG/DL (0.0-1.0)
[2019-11-17 07:19] LABS: COLOR,URINE YELLOW
--- NOTE | 2019-11-17 07:26 | NUR ---
HAND-OFF: Report given to TRISHA LANDAVERDE.
--- NOTE | 2019-11-17 07:30 | NUR ---
NURSE NOTES: LATE ENTRY: RECEIVED REPORT FROM JENNI Umaña PT IN BED RESTING. RESPONSIVE TO NAME. A/OX3. SR ON MONITOR. HR 81. BP 117/69, 100% SATING, RR 15. PT ON 2L NC. DIET 2G, APPETITE OK, BUT C/O NAUSEA AFTER EATING SNACK. NO BM, PT CONTINENT, USES BEDPAN. SKIN INTACT. LT HAND 22G, RT HAND 20 G. TKO. A FEBRILE. BED ALARM ON, CALL LIGHT IN REACH.
[2019-11-17] MEDS ORDERED: Zolpidem 5mg tab ORAL PRN (08:22)
[2019-11-17] MEDS ORDERED: Aspirin Baby 81mg ORAL SCH (09:00)
[2019-11-17] MEDS: Enoxaparin 60mg Inj SUBQ SCH ×2 (09:00→20:36)
[2019-11-17] MEDS ORDERED: NS 275ml ONE (09:21)
--- NOTE | 2019-11-17 09:40 | NUR ---
NURSE NOTES: LATE ENTRY: CALLED MD. Joni STANLEY REGARDING PT C/O NAUSEA POST BREAKFAST, ATE 100%, WILL OBTAIN ZOFRAN ORDER FROM MD. INFORMED ABOUT TROPONIN 0.207, RECOMMENDED EKG. RECEIVED ORDER FOR ZOFRAN 4MG IVP Q4HR, PRN, FOR N/V. 2D ECHO.
--- NOTE | 2019-11-17 09:50 | NUR ---
NURSE NOTES: LATE ENTRY: PT C/O PAIN 7/10 CHEST, ACHING, MORPHINE GIVEN, ZOFRAN GIVEN FOR NAUSEA
--- NOTE | 2019-11-17 10:00 | NUR ---
NURSE NOTES: LATE ENTRY: EXPLAINED TO PT PLAN OF CARE. MD WANTS 2-D ECHO TO SEE HEART ACTIVITY. PT STATES UNDERSTANDING. PT GIVEN MORPHINE 4MG IVP, PAIN 7/10, LATERAL LEFT CHEST, ACHING, ABLE TO POINT TO LOCATION, PT DIAPHORETIC. BP STABLE. PT C/O NAUSEA. ZOFRAN ADMINISTERED, IVP. TECH HERE TO DO 2D ECO.
--- NOTE | 2019-11-17 11:00 | NUR ---
NURSE NOTES: LATE ENTRY: TECH HERE TO DO 2 D ECHO. PT IN NO ACUTE DISTRESS.
--- NOTE | 2019-11-17 12:48 | NUR ---
REDUCING MACHINE OPERATOR NOTE SW met w/pt and completed the initial assessment. Pt has been homeless over a year. Pt does not receive any income. PT reports she took Oxycodone for pain management. Pt denies SI/HI. PT has 4 children. Pt denies having mental health issue. RUDS positive for THC, Opiates and Benzo. Emergency contacts: Selin Harrison (daughter) [phone] and Sonido Camara (significant other/boyfriend, not ) [phone] Pt expresses she wants to go to her daughter's home upon DC. As per request, SW attempted to inform her daughter of the hospitalization. The call was not answered, no vm option. JOBY will attempt again. Addendum: 11/17/19 at 1620 by JOSHUA HEMPHILL JOBY attempted to call Selin Harrison [phone] but the automatic message says the call cannot be completed at this time.
--- NOTE | 2019-11-17 12:50 | History & Physical ---
History and Physical History & Physicial HP dictated #[id number] Ramirez Sanchez MD Nov 17, 2019 12:50
[2019-11-17] MEDS: metroNIDAZOLE 500mg tab ORAL SCH ×2 (13:36→21:36)
--- NOTE | 2019-11-17 13:37 | NUR ---
NURSE NOTES: LATE ENTRY: PT C/O PAIN 7/10 CHEST, ACHING, MORPHINE GIVEN, ZOFRAN GIVEN FOR NAUSEA
--- NOTE | 2019-11-17 14:00 | History and Physical Report ---
DATE OF ADMISSION: 11/17/2019 CHIEF COMPLAINT: Chest pain, nausea, vomiting. HISTORY OF PRESENT ILLNESS: This is a 44-year-old female with history of hypothyroidism. The patient states that she had also thyroid cancer and her thyroid was removed. She has not seen any doctor for couple of months at least. She ran out of her Synthroid. She started having nausea and vomiting a few days ago, some diarrhea, and chest pain. She took some pain medications from her friend and her symptoms got worse. Finally, she came to the emergency room. She was admitted for further care. PAST MEDICAL HISTORY: Include history of thyroid cancer as mentioned and hypothyroidism. She said she has congenital heart disease, but she cannot give me any details. She said [facility] in her young age. ALLERGIES: Reported to penicillin. SOCIAL HISTORY: The patient smokes half a pack a day, has been smoking since age 11. She lives at home with her boyfriend. REVIEW OF SYSTEMS: As above. PHYSICAL EXAMINATION: GENERAL: The patient is a 44-year-old female, in no distress. VITAL SIGNS: Blood pressure is 109/65, pulse 70, respirations 14, temperature 98. HEENT: [place] conjunctivae. Anicteric sclerae. NECK: Supple. LUNGS: Clear to auscultation. HEART: S1, S2 without murmurs or rubs. ABDOMEN: Soft, nontender. EXTREMITIES: No cyanosis or edema. LABORATORY FINDINGS: The CBC shows a WBC of 14,900, hematocrit 36.7, hemoglobin 11.7, platelets 131,000. Chemistry panel shows a serum sodium 133, potassium 5.4, BUN 12, creatinine 1. AST and ALT were normal. TSH is elevated at 17. Magnesium is 1.9 and phosphorus 4.9. UA was negative except 2+ protein. ASSESSMENT: This is a 44-year-old female who is admitted for chest pain, which is very atypical, sharp in nature and constant. She has had mostly nausea, vomiting and some diarrhea, possibly as a result of gastroenteritis. Her WBC is somewhat increased. She may have an infectious gastroenteritis. Other possibility such as peptic ulcer disease, gallstones need to be ruled out. PLAN: The patient's troponin will be re-checked again to make sure that she does not have any cardiac ischemia. The initial one was 0.2. Cardiology consultation will be obtained. The patient will be started back on Synthroid. I will start the patient empirically on antibiotics. An echocardiogram will be obtained to assess the LV function. Labs will be followed and further adjustment will be made in the patient's regimen. Ramirez Sanchez M.D. DR: LAURA JOB#: [id number] CC: ALETHA
--- NOTE | 2019-11-17 14:31 | NUR ---
*-* INSURANCE *-* ALL AVAILABLE CLINICALS HAVE BEEN FAXED TO: [facility]#[id number] P:[phone] F:[phone]
--- NOTE | 2019-11-17 14:32 | Diagnostic Imaging Report ---
Indication: Chest pain Technique: One view of the chest Comparison: 10/29/2017 Findings: Interim development of bilateral left greater than right interstitial and airspace infiltrates. There is some atelectasis at the left lung base. There may be some pleural fluid on the left. Impression: Bilateral infiltrates, likely pneumonia. Possible left pleural effusion Left basilar atelectasis
--- NOTE | 2019-11-17 15:00 | NUR ---
NURSE NOTES: LATE ENTRY: CALLED NAD LEFT MESSAGE FOR Joni STANLEY REGARDING PT C/O OF CHEST PAIN, 11/02, STATES MORPHINE DOES NOTHING. PT C/O NAUSEA. REQUESTING ZOFRAN. TROPONIN 0.186. K 5.4
--- NOTE | 2019-11-17 16:00 | NUR ---
NURSE NOTES: LATE ENTRY: PT C/O PAIN 7/10 CHEST, ACHING, MORPHINE GIVEN, ZOFRAN GIVEN FOR NAUSEA.
--- NOTE | 2019-11-17 16:07 | NUR ---
CASE MANAGEMENT: INITIAL REVIEW 11/17/2019 44 YO F BRINDA FROM HOME CC: OVERDOSE ON OXYCONTIN PMHx; Thyroid cancer with resultant hypothyroidism. Thyroidectomy. SI:ACS VS 97.2 HR 105 RR 20 B/P 111/75 SATS 97% ON RA LABS: WBC 14.8 NA 133 K 5.4 GLU 150 CA 7.9 AST 52 ALP 45 TROPONIN 0.207 BNP 155 TSH 17.321 IS: ASA PO X1 NS BOLUS X1 CALCIUM GLUCONATE IV X1 INSULIN HUMAN 10 UNIT IV X1 TORADOL IV X1 LOVENOX SUBQ Q12H PATIENT ADMITTED TO ICU 11/17/2019 @ 0244 DCP: TBD PLAN OF CARE: empirically on antibiotics An echocardiogram will be obtained to assess the LV function
--- NOTE | 2019-11-17 16:45 | Consultation ---
DATE OF CONSULTATION: 11/17/2019 INFECTIOUS DISEASES CONSULTATION CONSULTING PHYSICIAN: Bora Sanchez MD PRIMARY ATTENDING PHYSICIAN: Ramirez Sanchez MD. REASON FOR CONSULTATION: Diarrhea and leukocytosis. HISTORY OF PRESENT ILLNESS: The patient is a 44-year-old female admitted today from home. Family was concerned about opiate overdose. The patient states that she has hypothyroidism, ran out of the medication and started to get oxycodone for headache, also had diarrhea and chest pain. PAST MEDICAL HISTORY: Significant for thyroid cancer status post thyroidectomy, hypothyroidism, coronary artery disease, hypertension. ALLERGIES: Allergic to penicillin. MEDICATIONS: Getting levothyroxine, Flagyl, Zofran, enoxaparin, aspirin, famotidine, Ambien. SOCIAL HISTORY: She is a . Smoking one pack cigarettes a day. Denies drug abuse. Denies alcohol abuse. REVIEW OF SYSTEMS: No fever. No chills. Has productive cough, left-sided chest pain does not improve with morphine in the hospital. No nausea. No vomiting. She has diarrhea. PHYSICAL EXAMINATION: VITAL SIGNS: Pulse 70, blood pressure 109/65, temperature 98. HEAD AND NECK: [place] conjunctivae. No oral lesion. HEART: Normal rate. LUNGS: Clear. ABDOMEN: Soft and nontender. EXTREMITIES: No edema. NEUROLOGIC: Awake, alert, oriented x3. LABORATORY AND DIAGNOSTIC DATA: WBC 14.8, hemoglobin 11.7, hematocrit 36.7 patient is 431. Sodium 133, potassium 5.4, chloride 99, bicarb 24, BUN 12, creatinine 1, glucose 150. Troponin was elevated 0.207. TSH is elevated at 17 . Urine toxicology was positive for opiates, benzodiazepines, and THC. UA was negative for rbc and wbc. IMPRESSION: 1. Leukocytosis. 2. Diarrhea, we have to rule out colitis. 3. Hypothyroidism. 4. Chest pain. 5. Penicillin allergy. 6. Hypertension. 7. Polysubstance abuse including opiates, benzodiazepine, and THC. 8. Nicotine dependence. 9. Diastolic CHF on echocardiogram. RECOMMENDATION: We will continue Flagyl. We will follow up the cultures and clinical course. At the end of my exam, I thank Dr. Ramirez Sanchez, for involving me in the care of this patient. Bora Sanchez M.D. DR: Danna JOB#: [id number] CC: ALETHA
--- NOTE | 2019-11-17 17:10 | NUR ---
NURSE NOTES: LATE ENTRY: RECEIVED CALL BACK FROM MD Joni STANLEY REGARDING PT PAIN AND PAIN MANAGEMENT. WILL NOT CHANGE MEDICATION TYPE BUT CAN CHANGE MORPHINE FROM Q4 TO Q2HR.
--- NOTE | 2019-11-17 19:30 | NUR ---
HAND-OFF: Report given to JENNI Umaña PT IN NO ACUTE DISTRESS
--- NOTE | 2019-11-17 19:55 | NUR ---
NURSE NOTES: LE: PATIENT AWOKE, ORIENTED X3, CONFUSED TO SITUATION, FOLLOWED COMMANDS, RESPIRATION REGULAR WITH O2 2LPM VIA NC, O2 SATURATION 100% NOTED, HR 70'S/MIN SR NOTED, ABDOMEN SOFT, NO N/V NOTED, DENIED SOB OR PAIN, PPL TO LEFT HAND 22G, INTACT AND PATENT, MADE LOWER BED POSITION, ON BED ALARM AND LOCKED, PROVIDED CALL LIGHT WITHIN REACH, WILL CONTINUE TO MONITOR.
--- NOTE | 2019-11-17 20:34 | NUR ---
NURSE NOTES: LE : PATIENT COMPLAINED CHEST PAIN OF 8/10 THAT GIVEN MORPHINE 4MG BY IVP SLOWLY PRN ORDER.
--- NOTE | 2019-11-17 21:30 | NUR ---
NURSE NOTES: LE; NO PAIN OR SOB NOTED AT THIS TIME.
--- NOTE | 2019-11-17 23:26 | NUR ---
NURSE NOTES: PATIENT COMPLAINED CHEST PAIN OF 8/10 THAT GIVEN MORPHINE 4MG BY IVP SLOWLY PRN ORDER [id number]. PATIENT WANTED TO SLEEP THAT GIVEN AMBIEN 5MG BY PO AND MADE DIM LIGHT AT 2315PM. NOW PATIENT WATCHING TV ON BED, WILL CONTINUE TO MONITOR.
[2019-11-18] VITALS (10 sets, daily range): BP systolic 118–162; BP diastolic 62–99
--- NOTE | 2019-11-18 00:35 | NUR ---
NURSE NOTES: ONGOING LEVOPHED 4MCG/MIN VIA TLC, BP BP 92/63MMHG NOTED AT THIS TIME, WILL CONTINUE TO MONITOR. Addendum: 11/18/19 at 0036 by JENNI GUAMAN RN WRONG PATIENT.
--- NOTE | 2019-11-18 00:37 | NUR ---
NURSE NOTES: PATIENT ASLEEP STATUS, NO PAIN OR SOB NOTED AT THIS TIME.
--- NOTE | 2019-11-18 02:09 | NUR ---
NURSE NOTES: PATIENT ASLEEP STATUS, HR 60'S/MIN SR, NO CHEST PAIN OR DISTRESS NOTED AT THIS TIME, WILL CONTINUE PLAN OF CARE.
--- NOTE | 2019-11-18 04:05 | NUR ---
NURSE NOTES: PATIENT ASLEEP STATUS, VSS, WILL CONTINUE TO MONITOR.
[2019-11-18] MEDS: Morphine Sulfate 4mg/ml Inj (IV USE ONLY) IVP PRN ×4 (04:33→20:39)
--- NOTE | 2019-11-18 04:33 | NUR ---
NURSE NOTES: PATIENT COMPLAINED CHEST PAIN OF 9/10 THAT GIVEN MORPHINE 4MG BY IVP SLOWLY PRN ORDER.LE
--- NOTE | 2019-11-18 05:10 | NUR ---
NURSE NOTES: MORNING CARE WAS DONE, NO BM STATUS, PATIENT REFUSED SCD'S.
[2019-11-18] MEDS: metroNIDAZOLE 500mg tab ORAL SCH ×3 (05:34→22:09)
--- NOTE | 2019-11-18 06:20 | NUR ---
TRANSFER TO FLOOR: Patient transferred to [facility] unit room 207-1 via hospital bed. Report given to TRISHA MOORE. Belongings and medications given to receiving nurse. Patient alert, oriented, no distress noted while transfer.
--- NOTE | 2019-11-18 07:30 | NUR ---
NURSE NOTES: Received patient in bed. Awake, A/O x3. On 2 lpm via NC, respirations unlabored. Denies pain at this time. IV in the Left forearm, site intact. Continued cardiac cath technician. No c/o of chest pain or respiratory distress. Bed low and locked, side rails up x2.
--- NOTE | 2019-11-18 07:52 | NUR ---
HAND-OFF: Report given to Becky RICO. Patient in stable condition. Endorsed plan of care.
[2019-11-18] MEDS ORDERED: Zolpidem 5mg tab ORAL PRN (08:30)
[2019-11-18] MEDS: Aspirin Baby 81mg ORAL SCH (08:40)
[2019-11-18] MEDS: Enoxaparin 60mg Inj SUBQ SCH ×3 (08:42→20:37)
--- NOTE | 2019-11-18 08:52 | NUR ---
NURSE NOTES: Patient refused subcut lovenox injection. Patient re-educated on risks and benefits. Med wasted in the pyxis.
--- NOTE | 2019-11-18 11:05 | NUR ---
NURSE NOTES: Dr. Ramirez Sanchez contacted for abnormal lab levels on 11/15. New order to repeat labs tomorrow obtained and carried out.
--- NOTE | 2019-11-18 16:17 | NUR ---
PT Note PT edilia completed. Patient is independent in all mobility and gait with a FWW x 120 ft. Patient has a steady gait; no loss of balance noted. No c/o dizziness. Patient does not need any physical therapy f/u treatments. Will DC PT. Patient has DME's at home. Addendum: 11/18/19 at 1619 by XI AGUILAR PT Amended: Links added.
--- NOTE | 2019-11-18 19:47 | NUR ---
HAND-OFF: Report given to Jacqueline/TRISHA pt in statble condition, endorsed plan of care.
--- NOTE | 2019-11-18 20:13 | NUR ---
NURSE NOTES: Received report from TRISHA Pena. Patient is awake alert and oriented x 3. On low potassium diet instructed and amenable. hand spinner is in placed, shows sinus rhythm with no chest pain reported. IV site is on left forearm G-22 saline lock that is patent and intact. Safety measures are in placed, bed in lowest and locked position, side rails up x 2. Call light button and bedside table within reach, instructed to call for any assistance needed.
--- NOTE | 2019-11-18 20:21 | General Progress Note ---
Assessment/Plan Problem List: (1) GERD (gastroesophageal reflux disease) ICD Codes: K21.9 - Gastro-esophageal reflux disease without esophagitis SNOMED: 148748036 (2) CAD (coronary artery disease) ICD Codes: I25.10 - Atherosclerotic heart disease of [place] coronary artery without angina pectoris SNOMED: 62583331 (3) Chest pain ICD Codes: R07.9 - Chest pain, unspecified SNOMED: 77380228 (4) Drug overdose ICD Codes: T50.901A - Poisoning by unspecified drugs, medicaments and biological substances, accidental (unintentional), initial encounter SNOMED: 65548175 Assessment/Plan: Echo noted await cardiology consult possible Dc tomorrow Subjective Allergies: Coded Allergies: PENICILLINS (Verified Allergy, Unknown, 10/29/17) UNABLE TO ASSESS (Unverified , 04/18/17) Uncoded Allergies: PENICILLIN (Allergy, Unknown, 11/16/19) Subjective feels better Objective Last 24 Hour Vital Signs Date Time Temp Pulse Resp B/P (MAP) Pulse Ox O2 Delivery O2 Flow Rate FiO2 11/18/19 16:00 98.0 83 18 162/99 (120) 98 11/18/19 16:00 95 11/18/19 12:00 71 11/18/19 12:00 97.9 79 16 143/95 (111) 98 11/18/19 08:00 98.7 87 16 135/88 (104) 98 11/18/19 08:00 Nasal Cannula 2.0 11/18/19 08:00 94 11/18/19 05:00 75 18 123/71 (88) 99 11/18/19 04:15 97.6 75 15 123/81 (95) 100 11/18/19 04:00 62 15 100 11/18/19 04:00 62 11/18/19 04:00 Nasal Cannula 2.0 11/18/19 03:00 65 17 118/67 (84) 100 11/18/19 02:00 64 15 121/62 (81) 100 11/18/19 01:00 70 22 139/65 (89) 100 11/18/19 00:00 83 11/18/19 00:00 97.8 83 15 130/65 (86) 100 11/18/19 00:00 Nasal Cannula 2.0 7/24/20 23:00 82 17 138/82 (100) 100 11/17/19 22:00 80 14 149/82 (104) 99 11/17/19 21:00 78 15 142/80 (100) 100 Intake and Output 11/17/19 11/18/19 19:00 07:00 Intake Total 270 ml 500 ml Output Total 1100 ml Balance 270 ml -600 ml Intake Oral 270 ml 500 ml Output Urine Total 1100 ml Height (Feet): 5 Height (Inches): 6.00 Weight (Pounds): 135 Cardiovascular: normal rate Respiratory/Chest: lungs clear Ramirez Sanchez MD Nov 18, 2019 20:21
[2019-11-19] VITALS: BP 143/81
--- NOTE | 2019-11-19 02:30 | NUR ---
NURSE NOTES: PATIENT NOTED TO HAVE 1 EPISODE OF VOMITING; EMESIS IS GREEN-YELLOW IN COLOR, THIN & FROTHY CONSISTENCY. DENIES ANY ABDOMINAL PAIN AT THIS TIME. PATIENT GIVEN ZOFRAN ORDERED. WILL CONTINUE TO MONITOR FOR ANY CHANGES.
[2019-11-19] MEDS: Morphine Sulfate 4mg/ml Inj (IV USE ONLY) IVP PRN ×3 (03:14→10:26)
[2019-11-19 04:00] VITALS: BP 136/82
[2019-11-19] MEDS: metroNIDAZOLE 500mg tab ORAL SCH (06:10)
--- NOTE | 2019-11-19 07:32 | NUR ---
HAND-OFF: Report given to TRISHA Pena. Patient is on bed, in stable condition, plan of care endorsed.
--- NOTE | 2019-11-19 07:45 | NUR ---
NURSE NOTES: Received report from Jeniffer RICO. Pt awake eating breakfast, states she is going home today and tried to call her ride last night. Reports having vomited last night. No signs of respiratory distress or pain, will monitor for signs of nausea and respiratory depression r/t pain medication given 714. Bed locked and in lowest position, call light within reach.
[2019-11-19 08:00] VITALS: BP_SYST 134; BP_SYST 160; BP_DIAS 83; BP_DIAS 88
[2019-11-19] MEDS: Aspirin Baby 81mg ORAL SCH (08:34)
[2019-11-19] MEDS: Enoxaparin 60mg Inj SUBQ SCH (08:52)
--- NOTE | 2019-11-19 08:53 | NUR ---
NURSE NOTES: Pt refused Lovenox medication, educated pt on the benefits of the medication with the history of cardiac issues, pt states she is going home and does not want it. No discharge orders have been received at this time, will follow up with MD regarding plan of care.
[2019-11-19 09:03] LABS: ANION GAP 10 mmol/L (5-15); BLOOD UREA NITROGEN 7 mg/dL (7-18); CALCIUM 8.2 MG/DL (8.5-10.1); CARBON DIOXIDE 25 MMOL/L (21-32); CHLORIDE 103 MMOL/L (98-107); CREATININE 0.7 MG/DL (0.55-1.30); SODIUM 138 MMOL/L (136-145)
[2019-11-19 12:00] VITALS: BP 155/92
--- NOTE | 2019-11-19 12:14 | NUR ---
NURSE NOTES: pt wants to be DC, or she will leave AMA. Per doctor Vanesa Kaiser, pt is ok to be DC today. 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
--- NOTE | 2019-11-19 12:24 | Infectious Diseases Prog Note ---
Assessment/Plan Assessment/Plan A: 1. Leukocytosis. 2. Pneumonia 3. Hypothyroidism. 4. Chest pain. 5. Penicillin allergy. 6. Hypertension. 7. Polysubstance abuse including opiates, benzodiazepine, and THC. 8. Nicotine dependence. 9. Diastolic CHF on echocardiogram. RECOMMENDATION Discontinue Flagyl PO Levaquin X 5 days Subjective ROS Limited/Unobtainable: No Constitutional: Reports: no symptoms, other - feels better, wants to go home Respiratory: Reports: no symptoms Gastrointestinal/Abdominal: Reports: no symptoms Genitourinary: Reports: no symptoms Allergies: Coded Allergies: PENICILLINS (Verified Allergy, Unknown, 10/29/17) UNABLE TO ASSESS (Unverified , 04/18/17) Uncoded Allergies: PENICILLIN (Allergy, Unknown, 11/16/19) Objective Last 24 Hour Vital Signs Date Time Temp Pulse Resp B/P (MAP) Pulse Ox O2 Delivery O2 Flow Rate FiO2 11/19/19 08:00 98.8 84 18 134/83 (100) 97 11/19/19 04:00 99.1 78 19 136/82 (100) 96 11/19/19 04:00 79 11/19/19 00:00 63 11/19/19 00:00 99.8 80 20 143/81 (101) 95 11/18/19 21:00 Nasal Cannula 2.0 11/18/19 20:00 87 11/18/19 20:00 99.5 87 19 147/85 (105) 96 11/18/19 16:00 98.0 83 18 162/99 (120) 98 11/18/19 16:00 95 Height (Feet): 5 Height (Inches): 6.00 Weight (Pounds): 135 HEENT: mucous membranes moist Respiratory/Chest: lungs clear Cardiovascular: normal rate Abdomen: soft, non tender Extremities: no edema Neurologic/Psychiatric: alert, oriented x 3, responsive Microbiology Date/Time Source Procedure Growth Status 11/17/19 01:06 Nasopharynx SARS-CoV-2 RdRp Gene Assay - Final Complete Laboratory Tests Test 11/19/19 07:50 Sodium Level 138 MMOL/L (136-145) Potassium Level 4.0 MMOL/L (3.5-5.1) Chloride Level 103 MMOL/L (98-107) Carbon Dioxide Level 25 MMOL/L (21-32) Anion Gap 10 mmol/L (5-15) Blood Urea Nitrogen 7 mg/dL (7-18) Creatinine 0.7 MG/DL (0.55-1.30) Estimat Glomerular Filtration Rate > 60 mL/min (>60) Glucose Level 128 MG/DL (74-106) H Calcium Level 8.2 MG/DL (8.5-10.1) L Current Medications Medications (Trade) Dose Ordered Sig/Colleen Route PRN Reason Start Time Stop Time Status Last Admin Dose Admin Acetaminophen (Tylenol) 650 mg Q4H PRN ORAL Mild Pain (Pain Scale 1-3) 11/18/19 06:45 12/17/19 06:44 11/19/19 08:34 Aspirin (ASA) 81 mg DAILY ORAL 11/18/19 09:00 01/01/20 08:59 11/19/19 08:34 Dextrose (Dextrose 50%) 25 ml Q30M PRN IV Hypoglycemia 11/18/19 06:45 02/15/20 08:14 Dextrose (Dextrose 50%) 50 ml Q30M PRN IV Hypoglycemia 11/18/19 06:45 02/15/20 08:14 Enoxaparin Sodium (Lovenox) 60 mg EVERY 12 HOURS SUBQ 11/18/19 09:00 02/15/20 08:59 Famotidine (Pepcid) 40 mg DAILY ORAL 11/18/19 09:00 02/15/20 08:59 11/19/19 08:34 Levothyroxine Sodium (Synthroid) 100 mcg Q24H ORAL 11/19/19 06:30 12/18/19 06:29 11/19/19 06:10 Metronidazole (Flagyl) 500 mg Q8HR ORAL 11/18/19 14:00 11/24/19 13:59 11/19/19 06:10 Morphine Sulfate (Morphine Sulfate) 4 mg Q2H PRN IVP For Pain 4-10 11/18/19 07:30 11/24/19 19:29 11/19/19 10:26 Ondansetron HCl (Zofran) 4 mg Q4H PRN IVP Nausea & Vomiting 11/18/19 06:45 12/17/19 06:44 11/19/19 08:39 Zolpidem Tartrate (Ambien) 5 mg HSPRN PRN ORAL Insomnia 11/18/19 08:30 8/1/20 08:29 11/18/19 20:37 Bora Sanchez MD Nov 19, 2019 12:24
[2019-11-19] MEDS ORDERED: Levofloxacin 750mg tab ORAL SCH (12:30)
--- NOTE | 2019-11-19 12:30 | NUR ---
NURSE NOTES: Pt insistent on leaving from hospital AMA because she states she has work tomorrow and needs to go or else she will get fired and will not make any money because she has not made any money for the last couple months. Pt was advised to stay for another day to do a stress test tomorrow, but refused to stay any longer and promised to come back for it if needed. Willi HARMON issued discharge order. Pt in stable condition, left in private vehicle with a friend. First dose of antibiotic was given before discharge and gave pt prescription for antibiotic, and signed. Explained all discharge instructions including medications to continue/stop, educated pt on narcotics overdose and shortness of breath, instructed pt to follow up with PCP. Patient verbalized understanding of all discharge instructions/education materials, medications, and follow up. Took off pt identifier bracelet, removed tele monitor, went through patient belongings and patient threw them away in the trash before leaving. Discontinued IV line and covered with 4x4, no bleeding or redness noted at site.
--- NOTE | 2019-11-19 12:41 | NUR ---
CASE MANAGEMENT:REVIEW 11/19/19 SI: PNEUMONIA. CHF. CHEST PAIN POLYSUBSTANCE ABUSE 98.7 80 19 155/92 100% ON 2L/NC GLUCOSE+128 IS: LEVAQUIN PO QD SYNTHROID PO Q24 ASA PO QD LOVENOX SQ Q12 PEPCID PO QD : TELEMETRY PLAN: DISCHARGE HOME TODAY
[2019-11-19] MEDS ORDERED: LEVAQUIN750 MG ORAL (12:42)
--- NOTE | 2019-11-19 15:16 | Cardiology Progress Note ---
Subjective Subjective [id number] Objective Last 24 Hour Vital Signs Date Time Temp Pulse Resp B/P (MAP) Pulse Ox O2 Delivery O2 Flow Rate FiO2 11/19/19 12:22 Nasal Cannula 2.0 11/19/19 12:00 98.7 80 19 155/92 (113) 100 11/19/19 08:00 98.8 84 18 134/83 (100) 97 11/19/19 07:50 91 11/19/19 04:00 99.1 78 19 136/82 (100) 96 11/19/19 04:00 79 11/19/19 00:00 63 11/19/19 00:00 99.8 80 20 143/81 (101) 95 11/18/19 21:00 Nasal Cannula 2.0 11/18/19 20:00 87 11/18/19 20:00 99.5 87 19 147/85 (105) 96 11/18/19 16:00 98.0 83 18 162/99 (120) 98 11/18/19 16:00 95 Intake and Output 11/18/19 11/19/19 19:00 07:00 Intake Total 300 ml Balance 300 ml Intake Oral 300 ml # Voids 3 2 Laboratory Tests Test 11/19/19 07:50 Sodium Level 138 MMOL/L (136-145) Potassium Level 4.0 MMOL/L (3.5-5.1) Chloride Level 103 MMOL/L (98-107) Carbon Dioxide Level 25 MMOL/L (21-32) Anion Gap 10 mmol/L (5-15) Blood Urea Nitrogen 7 mg/dL (7-18) Creatinine 0.7 MG/DL (0.55-1.30) Estimat Glomerular Filtration Rate > 60 mL/min (>60) Glucose Level 128 MG/DL (74-106) H Calcium Level 8.2 MG/DL (8.5-10.1) L Microbiology Date/Time Source Procedure Growth Status 11/17/19 01:06 Nasopharynx SARS-CoV-2 RdRp Gene Assay - Final Complete Stephie Perez MD Nov 19, 2019 15:16
--- NOTE | 2019-11-19 17:15 | Consultation ---
DATE OF CONSULTATION: 11/19/2019 CARDIOLOGY CONSULTATION CONSULTING PHYSICIAN: Stephie Perez MD. This consultation is done as a coverage for Dr. Stephen. PATIENT ID: This is a 44-year-old female. REASON FOR EVALUATION: Chest pain. HISTORY OF PRESENT ILLNESS: Taken from the patient. She is very pleasant lady who had some injuries apparently fell on her left arm and she had some skin injury and also pain and swelling of the left arm. It was radiating to her chest and was a severe pain, sharp for at least several hours. She denies any cough or fever. She denies any chest pain before like that. 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 Presently, she is not taking anything besides levothyroxine. PAST MEDICAL HISTORY: Significant for smoking, tobacco abuse, thyroid disease, drug overdose, and GERD. ALLERGIES: Not reported. HOME MEDICATIONS: As mentioned. HABITS: She is a smoker. She denies illicit drug use, but she was not very definite about it. REVIEW OF SYSTEMS: As in the history of present illness. PHYSICAL EXAMINATION: GENERAL: This is a middle-aged female, lying in bed. VITAL SIGNS: Blood pressure 155/92, oxygen saturation 100%, heart rate 80. She is afebrile. HEENT: PERRLA. EOMI. NECK: Supple. Jugular venous pressure is not elevated. LUNGS: She has some rales and rhonchi bilaterally. HEART: Regular with positive S4. BREASTS: No masses. ABDOMEN: Soft, nontender. EXTREMITIES: There is some scratches and abrasions of the left arm. Left arm is somewhat swollen and tender, but no obvious restriction of left arm range of motion. Lower extremity no edema. Distal pulses palpable. LABORATORY AND DIAGNOSTIC DATA: Her troponin was noted. It is elevated. Chest x-ray also was noted. There is left small pleural effusion on the left side. Her hemoglobin 11.7, her white count 14.8. ECG, which was done when I was present there, was normal. Other labs were also reviewed and again noted troponin elevation, otherwise unremarkable. IMPRESSION AND RECOMMENDATION: The patient has atypical chest pain. She is a smoker and so she needs a stress test. She could do just regular stress test. I am going to order it for tomorrow. I reviewed her echo, but I could not see the images and the preliminary appears that she has normal LV function. There is elevated white count, small pleural effusion, and swelling over the left arm. I am going to defer the management of this condition to primary care admitting physician. Thank you for your consultation. I am going to follow stress test. Dr. Stephen is going to follow this patient tomorrow. Stephie Perez M.D. DR: LEO JOB#: [id number] CC:
--- NOTE | 2019-11-20 09:14 | Discharge Summary ---
Discharge Summary Discharge Summary _ DATE OF ADMISSION: 11/17/2019 DATE OF DISCHARGE: 11/19/2019 DISCHARGED BY: Dr. Ramirez Sanchez REASON FOR ADMISSION: 44 years old female with past medical history of thyroid cancer, status post thyroidectomy with resulting hypothyroidism, presented for possible opiate overdose. Paramedics were called due to patient being increasingly somnolent and friend' s concern for overdose. No evidence of respiratory depression. Patient was treated in route to the hospital with Narcan, which improved her mentation. Patient arrived to ED awake and alert. Per patient she took a friend's oxycodone for persistent headache , that was going on for the past few days. Patient ran out of her Synthroid medication, and was unable to fill it due to COVID-19 pandemic. She stated that withdrawal from Synthroid gives her headache . She denied attempting self-harm or suicidal attempt. No history of alcohol abuse . upon evaluation patient was slightly tachycardic with heart rate 105 , otherwise vital signs were stable. Laboratory work-up revealed leukocytosis WBC 14.8, hemoglobin 11.7 ,hematocrit 36.7 ,platelet count 431. Sodium 133, potassium 5.4. BUN 12, creatinine 1.0. Glucose 150. TSH 17.321. Serum alcohol less than 3. Rapid COVID-19 done in emergency department was negative. Troponin 0.207, pro BNP 155. EKG revealed prolonged QT interval , no ST segment changes with underlying normal sinus rhythm. Chest x-ray revealed bilateral infiltrates likely pneumonia. Left basilar atelectasis Patient subsequently admitted for further management. CONSULTANTS: customer contact sales associate Dr. Perez ID specialist Dr. Bora Sanchez HOSPITAL COURSE: Patient admitted to telemetry floor. Absence Management Consultant followed. Patient restarted on Synthroid. Patient started on empiric antibiotics as per ID recommendations. Echocardiogram demonstrated preserved ejection fraction 60%. No evidence of left ventricular hypertrophy. No evidence of wall motion abnormality. Right ventricular systolic pressure of 35 consistent with a mild pulmonary hypertension. Second troponin trended down 0.186 . According to customer contact sales associate , patient had atypical chest pain. Patient however, reported being a smoker and needs a stress test , which can be done as outpatient. Antiplatelet therapy with aspirin provided. DVT and GI prophylaxis provided. Volumes were closely monitored. Pain management was addressed . GI prophylaxis provided. Antibiotic provided as per ID recommendation for treatment of pneumonia. Patient clinically stabilized and was ready for discharge home. FINAL DIAGNOSES: Atypical chest pain Pneumonia Nicotine dependency Hypertension Coronary artery disease GERD Hypothyroidism with elevated TSH /due to noncompliance Diastolic CHF /on echocardiogram Drug overdose DISCHARGE MEDICATIONS: See Medication Reconciliation list. DISCHARGE INSTRUCTIONS: Patient was discharged home. Reinforced compliance with medication regimen. Check thyroid function test in 3 to 4 weeks. I have been assigned to dictate discharge summary for this account. I was not involved in the patient's management. Susi Mora NP Nov 20, 2019 09:14
--- NOTE | 2019-11-20 14:31 | NUR ---
*-* INSURANCE *-* UPDATED CLINICALS AND REVIEWS HAVE BEEN FAXED TO: [facility]#[id number] P:[phone] F:[phone]
--- NOTE | 2019-11-24 16:06 | NUR ---
*-* INSURANCE *-* DISCHARGE SUMMARY HAS BEEN FAXED TO: [facility]#[id number] P:[phone] F:[phone]
--- NOTE | 2019-11-26 14:22 | Coder Physician Query ---
Clarification is required for compliance, coding accuracy, and to reflect severity of illness for this patient Dear Dr. 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 EKG revealed prolonged QT interval , no ST segment changes with underlying normal sinus rhythm. Chest x-ray revealed bilateral infiltrates likely pneumonia. Left basilar atelectasis Echocardiogram demonstrated preserved ejection fraction 60%. No evidence of left ventricular hypertrophy. No evidence of wall motion abnormality. Right ventricular systolic pressure of 35 consistent with a mild pulmonary hypertension. Second troponin trended down 0.186 . According to electrical experimental mechanic , patient had atypical chest pain. Patient however, reported being a smoker and needs a stress test , which can be done as outpatient. Antiplatelet therapy with aspirin provided. FINAL DIAGNOSES: Atypical chest pain Pneumonia Nicotine dependency,Hypertension Coronary artery disease GERD, Hypothyroidism with elevated TSH /due to noncompliance Diastolic CHF /on echocardiogram Drug overdose Please document the suspected etiology of Chest Pain: [] Acute myocardial infarction [] Acute Coronary Syndrome [] Pericarditis [] Anxiety [] Cancer [] Pneumonia [] Costochondritis [] GERD/Esophagitis [] Pulmonary embolism [] Other: [x] Unable to determine Physician signature Date Please also document in your Progress Notes and/or Discharge Summary and indicate if the condition was present on admission. ALETHA
== END 2019-11-19 13:26 | disposition home or self-care (01) | DRG 198 ==
LOC: EDBD 23:45 → EMR 11-17 00:40 → ICU 11-17 02:44 → EDBEDREQ 11-17 02:52 → 2E 11-18 06:14
DX: R07.89 Other chest pain (principal); J18.9 Pneumonia, unspecified organism; I11.0 Hypertensive heart disease with heart failure; I50.30 Unspecified diastolic (congestive) heart failure; Z85.850 Personal history of malignant neoplasm of thyroid; E89.0 Postprocedural hypothyroidism; Y83.8 Other surgical procedures as the cause of abnormal reaction of the patient, or of later complication, without mention of misadventure at the time of the procedure; Z88.0 Allergy status to penicillin; F17.200 Nicotine dependence, unspecified, uncomplicated; R11.2 Nausea with vomiting, unspecified; T40.2X1A Poisoning by other opioids, accidental (unintentional), initial encounter; Z91.14 Patient's other noncompliance with medication regimen; K21.9 Gastro-esophageal reflux disease without esophagitis; I25.10 Atherosclerotic heart disease of native coronary artery without angina pectoris; F19.10 Other psychoactive substance abuse, uncomplicated
CPT/HCPCS: 36415; 71045; 80048; 80053; 80307; 81003; 81025; 83735; 83880; 84100; 84443; 84484; 85025; 93005; 93306; 96361; 96374; 96375; 99285; G0480; J2405; J7030; U0002